=== PATIENT | female | born 1995 | race Caucasian/White ===

== ENCOUNTER 2020-12-09 09:36 | Emergency (ER) | payer BC, SELFPAY ==
[2020-12-09 09:40] VITALS: BP 124/53; PULSE 96; RESP 20; TEMP 36.9; O2SAT 100
--- NOTE | 2020-12-09 09:43 | ED.FEMALEGU ---
HPI - Female Genitourinary General Chief complaint: Urogenital-Female Stated complaint: Poss uti Time Seen by Provider: 12/09/20 09:43 Source: patient and RN notes reviewed History of Present Illness HPI Narrative: Patient is a 25-year-old female who presents the urgent care with complaints of a possible UTI. Patient states that she has had a lot of burning and frequency over the last 3 days and started taking Azo this morning at approximately 6 AM. Patient also reports of some right side pain that started today. Denies of any fever, chills, nausea, vomiting, abdominal pain. Denies any vaginal discharge. No other acute complaints. No acute distress noted. Patient aware of the plan of care. Some parts of this dictation were generated by voice recognition software and may contain typographical and/or grammatical inaccuracies. Related Data Allergies Allergy/AdvReac Type Severity Reaction Status Date / Time amoxicillin Allergy Hives Verified 12/09/20 09:49 Penicillins Allergy Hives Verified 12/09/20 09:49 Review of Systems Review of Systems: Narrative: CONSTITUTIONAL: Denies fever, chills, or sweats. EYES: Denies visual changes, redness, or discharge. ENT: Denies rhinorrhea, congestion, sore throat, or otalgia. CARDIOVASCULAR: Denies chest pain, palpitations, or edema. RESPIRATORY: Denies cough or dyspnea. GASTROINTESTINAL: Denies abdominal pain, nausea, vomiting, or diarrhea. GENITOURINARY: Reports of dysuria and urinary frequency SKIN: Denies rash or itching. MUSCULOSKELETAL: Denies back pain, joint pain, or myalgia. NEUROLOGIC: Denies headache, numbness, or weakness. All other systems reviewed are negative, except as documented in HPI. [facility] Family History Family History (Updated 05/24/19 @ 02:19 by Alise Ross RN) Grandparent Diabetes 1.5, managed as type 2 Social History Social History Smoking status: Never smoker Substance use: never Gender identity (if verbalized by the patient): Female Spiritual care concerns: No Comments At the time of my signature, I reviewed and agree with the nursing past medical, surgical, social, and family history. There is no relevant family history pertinent to the patient complaint. Exam Narrative: Exam Narrative: GENERAL: This is a well-nourished, well-developed patient, in no apparent distress. HEAD: normocephalic, atraumatic. EYES: PERRL. Sclera clear/white. Vision is grossly intact. EARS: External ears normal, auditory canals clear and without drainage, TMs normal without perforation. Hearing grossly intact. NOSE: External nose normal with no obvious nasal discharge, nares without redness, no rhinorrhea. THROAT: Mucous membranes moist NECK: Neck supple CARDIOVASCULAR: Regular rate and rhythm without murmurs, gallops, or rubs. RESPIRATORY: Clear to auscultation. Breath sounds equal bilaterally. No wheezes, rales, or rhonchi. GASTROINTESTINAL: Abdomen soft, mild suprapubic tenderness, nondistended. Bowel sounds are active. SKIN: warm, intact with no suspicious lesions or rash, good texture and turgor. NEURO: awake, alert, and oriented to person, place and time. There were no obvious focal neurologic abnormalities. EXTREMITIES: No clubbing, cyanosis, or edema. BACK: Negative bilateral CVA tenderness Course Vital Signs Vital signs: Vital Signs Temperature 98.5 F 12/09/20 09:40 Pulse Rate 96 12/09/20 09:40 Respiratory Rate 20 12/09/20 09:40 Blood Pressure 124/53 L 12/09/20 09:40 Pulse Oximetry 100 12/09/20 09:40 Temperature 98.5 F 12/09/20 09:40 Pulse Rate 96 12/09/20 09:40 Respiratory Rate 20 12/09/20 09:40 Blood Pressure 124/53 L 12/09/20 09:40 Pulse Oximetry 100 12/09/20 09:40 Reviewed MDM - Female Genitourinary MDM Narrative Medical decision making narrative: Reviewed lab results with the patient. She is aware that urine analysis is likely indicative for urinary tract infection. Considering Azo does skew the resu
== END 2020-12-09 10:05 | disposition home or self-care (01) ==
PROVIDERS: Emergency Provider Nurse Practitioner Family; PCP Family Medicine
DX: N39.0 Urinary tract infection, site not specified (principal)
CPT/HCPCS: 81003; 87077; 87086; 87088; 87186; 99213; G0463

== ENCOUNTER → 2021-02-15 11:43 | Outpatient (CLI) | payer BC, SELFPAY ==
--- NOTE | ~2021-02-15 | US_ITS ---
US breast LT complete INDICATION: Left breast pain TECHNIQUE: Dedicated left breast ultrasound COMPARISON: No prior studies for comparison. FINDINGS: The left breast is composed of normal heterogeneous echotexture without focal solid or cyst ic mass. IMPRESSION: 1: Normal left breast ultrasound. BI-RADS CATEGORY 1 - NEGATIVE Reviewed, dictated and finalized at location A.
== END ==
PROVIDERS: Visit Provider Advanced Practice Midwife
DX: N64.3 Galactorrhea not associated with childbirth (principal)
CPT/HCPCS: 76641

== ENCOUNTER 2021-04-23 12:46 | Emergency (ER) | payer BC, SELFPAY ==
[2021-04-23 12:53] VITALS: BP 141/65; PULSE 93; RESP 16; TEMP 37.2; O2SAT 98
--- NOTE | 2021-04-23 14:01 | ED.FEMALEGU ---
HPI - Female Genitourinary General Chief complaint: Urogenital-Female Stated complaint: UTI Time Seen by Provider: 04/23/21 13:43 Source: patient and RN notes reviewed Mode of arrival: ambulatory Limitations: no limitations History of Present Illness HPI Narrative: Patient presents today complaining of a 2-week history of urinary frequency, urgency, dysuria, and lower abdominal pain. Denies hematuria or back pain. Patient did a telemedicine visit 5 days ago and was placed on Macrobid, which did not help improve her symptoms. She finished the antibiotic yesterday. She has also been taking Azo for her symptoms MD elicited complaint: dysuria Related Data Home Medications Medication Instructions Recorded Confirmed bupropion HCl 100 mg PO BID 04/23/21 04/23/21 omeprazole 20 mg PO DAILY 04/23/21 04/23/21 Allergies Allergy/AdvReac Type Severity Reaction Status Date / Time amoxicillin Allergy Hives Verified 12/09/20 09:49 cephalexin Allergy Unknown Verified 04/23/21 14:02 Penicillins Allergy Hives Verified 12/09/20 09:49 Review of Systems Review of Systems: CONSTITUTIONAL: Denies body aches, fever, chills, or sweats. EYES: Denies visual changes, redness, or discharge. ENT: Denies rhinorrhea, congestion, sore throat, or otalgia. CARDIOVASCULAR: Denies chest pain, palpitations, or edema. RESPIRATORY: Denies cough or dyspnea. GASTROINTESTINAL: Denies nausea, vomiting, or diarrhea.+ Lower abdominal pain GENITOURINARY: Denies hematuria.+ Dysuria, frequency, urgency SKIN: Denies rash, itching, or wounds. MUSCULOSKELETAL: Denies back pain, joint pain, or myalgia. NEUROLOGIC: Denies headache, numbness, tingling, or weakness. PSYCH: Denies depression or anxiety. [facility] Family History Family History Grandparent Diabetes 1.5, managed as type 2 Social History Social History Smoking status: Never smoker Substance use: never Gender identity (if verbalized by the patient): Female Spiritual care concerns: No Comments At time of signature, I have reviewed and agree with nursing past medical, surgical, social and family history unless otherwise noted. Please see nursing chart for further information. There is no relevant family history pertinent to the presenting complaint Exam Narrative: GENERAL: Well-appearing, well-nourished, and in no acute distress. HEAD: Normocephalic, atraumatic. EYES: EOMI. No redness or drainage. Conjunctivae normal. ENT: Mucous membranes pink and moist. NECK: Normal AROM. CHEST: No respiratory distress. Clear to auscultation. HEART: Regular rate and rhythm. No murmur appreciated. Normal peripheral pulses. ABDOMEN: Soft, nontender, nondistended, normal active bowel sounds.-CVAT MUSCULOSKELETAL: No bony tenderness. EXTREMITIES: Normal range of motion. No edema. SKIN: Warm, dry, no rash. Capillary refill normal. Normal skin turgor. NEURO: No focal deficits. Alert and oriented x3. Gait steady. PSYCH: Normal affect. No signs of depression or anxiety. Course Vital Signs Vital signs: Vital Signs Temperature 99 F 04/23/21 12:53 Pulse Rate 93 04/23/21 12:53 Respiratory Rate 16 04/23/21 12:53 Blood Pressure 141/65 H 04/23/21 12:53 Pulse Oximetry 98 04/23/21 12:53 Temperature 99 F 04/23/21 12:53 Pulse Rate 93 04/23/21 12:53 Respiratory Rate 16 04/23/21 12:53 Blood Pressure 141/65 H 04/23/21 12:53 Pulse Oximetry 98 04/23/21 12:53 Reviewed. Pt has been instructed to follow up with her PCP regarding her elevated blood pressure today. MDM - Female Genitourinary Differential Diagnosis Differential diagnosis: Likely urinary tract infection, vaginitis, cystitis and other (Pyelonephritis, interstitial cystitis) Lab Data Attestation: I reviewed the patient's lab results. Labs: Urine Glucose Negative
== END 2021-04-23 14:07 | disposition home or self-care (01) ==
PROVIDERS: Emergency Provider Nurse Practitioner
DX: N30.01 Acute cystitis with hematuria (principal)
CPT/HCPCS: 81003; 87086; 99213; A4565; G0463

== ENCOUNTER 2021-05-02 19:20 | Emergency (ER) | payer BC, SELFPAY ==
[2021-05-02 19:25] VITALS: BP 141/75; PULSE 88; RESP 20; TEMP 36.8; O2SAT 100
--- NOTE | 2021-05-02 20:02 | ED.GENADULT ---
HPI - General Adult General Chief complaint: Urogenital-Female Stated complaint: UTI Time Seen by Provider: 05/02/21 19:46 Source: patient, RN notes reviewed and old records reviewed Mode of arrival: ambulatory Limitations: no limitations History of Present Illness HPI narrative: Patient presents today complaining of nausea, vomiting, diarrhea for the last 2 days. She was initially seen on 04/18/21 and a telemedicine visit and placed on Macrobid for some urinary symptoms. She was subsequently seen at urgent care on 04/23/2021 and switched to Bactrim because she stated her symptoms were not improving. She was seen in the ER at [facility] on 04/26/2021 for back pain where she received lab work and a CT scan of her abdomen. She was told at that time to continue the antibiotic she was placed on at urgent care. 2 days later on 04/28/2021 she was seen in the ER at [facility] for fever up to 101.6 as well as nausea and vomiting and diarrhea. She received another abdominal CT as well as blood work. She was given fluids to rehydrate and discharged home with a prescription for Pyridium and Zofran. She comes in today complaining of vomiting. States the Zofran gave her migraines and she is unable to take it. Fever has resolved. States she is having diarrhea frequently as well reports her urgency and urinary symptoms have never resolved either. She had a negative COVID-19 test yesterday. Related Data Home Medications Medication Instructions Recorded Confirmed ondansetron HCl 4 mg PO Q6H PRN 05/02/21 05/02/21 phenazopyridine 100 mg PO TID PRN 05/02/21 05/02/21 Allergies Allergy/AdvReac Type Severity Reaction Status Date / Time amoxicillin Allergy Intermediate Hives Verified 05/02/21 19:43 Penicillins Allergy Intermediate Hives Verified 05/02/21 19:43 ondansetron [From Zofran] AdvReac Intermediate Migraine Verified 05/02/21 19:56 Review of Systems Review of Systems: CONSTITUTIONAL: Denies body aches, fever, chills, or sweats. EYES: Denies visual changes, redness, or discharge. ENT: Denies rhinorrhea, congestion, sore throat, or otalgia. CARDIOVASCULAR: Denies chest pain, palpitations, or edema. RESPIRATORY: Denies cough or dyspnea. GASTROINTESTINAL: Denies abdominal pain. + Nausea, vomiting, Diarrhea GENITOURINARY: Denies dysuria or hematuria.+ Urgency SKIN: Denies rash, itching, or wounds. MUSCULOSKELETAL: Denies joint pain, or myalgia.+ Back pain NEUROLOGIC: Denies headache, numbness, tingling, or weakness. PSYCH: Denies depression or anxiety. PMFSH Family History Family History Grandparent Diabetes 1.5, managed as type 2 Social History Social History Smoking status: Never smoker Substance use: never Gender identity (if verbalized by the patient): Female Spiritual care concerns: No Comments At time of signature, I have reviewed and agree with nursing past medical, surgical, social and family history unless otherwise noted. Please see nursing chart for further information. There is no relevant family history pertinent to the presenting complaint Exam Narrative: GENERAL: Well-appearing, well-nourished, and in no acute distress. HEAD: Normocephalic, atraumatic. EYES: EOMI. No redness or drainage. Conjunctivae normal. ENT: Mucous membranes pink and moist. Throat normal. Uvula midline. NECK: Normal AROM. Supple. No lymphadenopathy. CHEST: No respiratory distress. Clear to auscultation. HEART: Regular rate and rhythm. No murmur appreciated. Normal peripheral pulses. ABDOMEN: Soft, nondistended, normal active bowel sounds. +Suprapubic tenderness MUSCULOSKELETAL: No bony tenderness of the spine. Bilateral lower lumbar muscular tenderness. EXTREMITIES: Normal range of motion. No edema. SKIN: Warm, dry, no rash. Capillary refill normal. Normal skin turgor. NEURO: No focal de
== END 2021-05-02 20:13 | disposition home or self-care (01) ==
PROVIDERS: Emergency Provider Nurse Practitioner
DX: B34.9 Viral infection, unspecified (principal); R39.15 Urgency of urination
CPT/HCPCS: 99213; G0463

== ENCOUNTER 2021-09-21 09:30 | Outpatient (CLI) | payer BC, SELFPAY ==
--- NOTE | ~2021-09-21 | XR_ITS ---
EXAMINATION: XR abdomen obstructive series EXAM DATE: 09/21/2021 10:14 INDICATION: R10.9 - Unspecified abdominal pain. TECHNIQUE: Frontal upright projection of the upper abdomen, frontal projection of the lower abdomen f or interpretation. There is no prior study for comparison. FINDINGS: There is expected amount of colonic stool and gas. No small bowel dilation, nonobstructiv e bowel gas pattern. There are no suspicious calcifications identified. There is no organomegaly suspected. The bones are unremarkable. There is no free intraperitoneal air. The lung bases are clear. IMPRESSION: Unremarkable abdomen x-ray exam. Reviewed, dictated and finalized at location A.
[2021-09-21 19:42] LABS: Hemoglobin 13.1 g/dL (12.0-15.0); Mean Corpuscular Hemoglobin 30.9 pg (26-34); Mean Corpuscular Volume 96.7 fl (80-100); Platelet Count Result 270 k/mm3 (150-375); Red Blood Count 4.24 M/mm3 (4.2-5.4); Red Cell Distribution Width 13.5 % (11.5-14.5); White Blood Count 4.5 K/mm3 (4.5-10.0)
[2021-09-21 19:58] LABS: Alanine Aminotransferase 13 U/L (4-35); Alkaline Phosphatase 60 U/L (38-126); Anion Gap 10 mmol/L (8-16); Aspartate Amino Transferase 20 U/L (14-36); Bilirubin,Total 0.2 mg/dL (0.2-1.3); Blood Urea Nitrogen 9 mg/dL (7-17); CRP 2.2 mg/dL (<1.0); Calcium 8.9 mg/dL (8.4-10.2); Carbon Dioxide 21 mmol/L (22-30); Chloride 107 mmol/L (98-107); Cholesterol 189 mg/dL (0-200); Estimated Glomerular Filt Rate > 60; Glucose 98 mg/dL (65-110); HDL Direct 40 mg/dL; Potassium 3.9 mmol/L (3.4-5.0); Sodium 138 mmol/L (137-145); Triglycerides 170 mg/dL (<150)
[2021-09-21 20:07] LABS: LDL Cholesterol Direct 122 mg/dL
[2021-09-21 20:13] LABS: Erythrocyte Sedimentation Rate 16 mm/hr (0-20)
[2021-09-23 22:23] LABS: Gliadin AB, IgG 13.8 U/mL (<15.0); Reticulin IgA Negative (Negative); TTG IGA AB <1.0 U/mL (<15.0)
[2021-09-25 01:22] LABS: Immunoglobulin E 8 kU/L (<=114)
== END 2021-09-21 09:31 | disposition home or self-care (01) ==
PROVIDERS: PCP Family Medicine; Visit Provider Family Medicine
DX: K58.9 Irritable bowel syndrome, unspecified (principal); R10.9 Unspecified abdominal pain; L90.5 Scar conditions and fibrosis of skin; Z00.00 Encounter for general adult medical examination without abnormal findings
CPT/HCPCS: 36415; 74019; 80053; 80061; 82785; 83516; 85027; 85652; 86003; 86140; 86255

== ENCOUNTER 2021-12-24 01:06 | Day surgery (SDC) | payer BC, MEDICAID, SELFPAY ==
[2021-12-16 09:10] VITALS: BMI 34.1
[2021-12-24 08:31] VITALS: BP 110/60; PULSE 92; RESP 18; TEMP 36.8; O2SAT 100
[2021-12-24] MEDS: LACTATED RINGERS 1,000 ML 150 ML IV CONT (08:37)
--- NOTE | 2021-12-24 08:51 | WPDHPUPDATE1 ---
History and Physical Update Update Date/Time: 12/24/21 08:51 History and Physical has been reviewed, including an updated exam of the patient. There are NO changes in the patient's condition. Risks, benefits, and alternatives have been discussed and questions answered. Patient agrees to proceed with procedure.
--- NOTE | 2021-12-24 09:01 | WPDANESEPPF ---
Anes - Initial Pre Proc Eval Procedure: Operation Date: 12/24/21 09:30 Proposed Procedures p Esophagogastroduodenoscopy & Colonoscopy - Tristin Duran MD Date/Time: 12/24/21 09:01 Surgeon: Tristin Duran MD Pre Op Diagnosis: nausea, change in bowel habits Patient Data Age: 26 Gender: F Height: 1.68 m Weight: 95.6 kg Last Vital Signs Temp 36.8 C 12/24/21 08:31 Pulse 92 12/24/21 08:31 Resp 18 12/24/21 08:31 BP 110/60 12/24/21 08:31 Pulse Ox 100 12/24/21 08:31 O2 Del Method Room Air 12/24/21 08:31 Allergies Allergy/AdvReac Type Severity Reaction Status Date / Time Penicillins Allergy Intermediate Hives Verified 12/24/21 08:29 ondansetron [From Zofran] AdvReac Intermediate Migraine Verified 12/24/21 08:29 amoxicillin AdvReac Unknown Rash Verified 12/24/21 08:29 Home Medications Medication Instructions Recorded Confirmed Type bupropion HCl 150 mg 24 hr tablet, 150 mg PO QAM #90 tabs 12/07/21 12/16/21 Rx extended release (Wellbutrin XL) Patient hx anesthesia problems: none Family hx anesthesia problems: none Results Review: All pre-operative results and documents have been reviewed as part of the pre-operative evaluation. [facility] Past Medical History Medical History Anxiety Depression Family History Family History Father Hypertension Depression Grandparent Hypertension Grandparent Diabetes 1.5, managed as type 2 Social History Social History Smoking status: Never smoker Alcohol intake: never Substance use: never Substance use type: does not use Living arrangements: with family Gender identity (if verbalized by the patient): Female Sexual Orientation (if Verbalized by the Patient): Straight or Heterosexual Spiritual care concerns: No Agree to blood products: Yes Anes - Eval Final PreProcedure Day of Procedure 12/24/21 09:01 Patient weight: obese Heart: regular rate and rhythm Lungs: clear to auscultation Airway: Mallampati scale class II Neurological: alert and oriented Last oral intake: >/= 8 hours ASA classification: II Emergent: no Anesthetic plan: proceed Anesthesia type and monitoring: general GIVS and standard monitoring Results Review: All pre-operative results and documents have been reviewed as part of the pre-operative evaluation. Informed Consent: The patient's anesthetic plan and its attendant risks and benefits were discussed with the patient/family/POA. Questions were solicited and answers provided to the satisfaction of the patient/family/POA.
[2021-12-24] MEDS: SIMETHICONE ORAL SUSPENSION 20 MG/0.3 ML 30 ML BOTTLE 0.6 ML IRRIGATION (09:55)
[2021-12-24 10:02] VITALS: BP 133/113; PULSE 62; RESP 22; O2SAT 100
[2021-12-24 10:12] VITALS: BP 86/64; PULSE 67; RESP 22; O2SAT 100
[2021-12-24 10:22] VITALS: BP 102/60; PULSE 55; RESP 19; O2SAT 100
== END 2021-12-24 10:28 | disposition home or self-care (01) ==
PROVIDERS: PCP Family Medicine; Visit Provider Internal Medicine Gastroenterology
PROC: 0DJ08ZZ Inspection of Upper Intestinal Tract, Via Natural or Artificial Opening Endoscopic (ICD-10-PCS; CPT 43235; principal; 2021-12-24 09:30)
DX: R19.4 Change in bowel habit (principal); R11.0 Nausea; R19.5 Other fecal abnormalities; F41.9 Anxiety disorder, unspecified; F32.A Depression, unspecified; E66.9 Obesity, unspecified; Z68.34 Body mass index [BMI] 34.0-34.9, adult; R19.8 Other specified symptoms and signs involving the digestive system and abdomen; R10.9 Unspecified abdominal pain; R19.7 Diarrhea, unspecified; R63.4 Abnormal weight loss; K64.8 Other hemorrhoids
CPT/HCPCS: 43239; 45378; 87081; J2704; J7120

== ENCOUNTER 2022-09-30 15:19 | Emergency (ER) | payer BC, SELFPAY ==
[2022-09-30 15:24] VITALS: BP 114/64; PULSE 79; RESP 18; TEMP 37; O2SAT 100
--- NOTE | 2022-09-30 15:45 | ED.FEMALEGU ---
HPI - Female Genitourinary General Chief complaint: Urogenital-Female Stated complaint: Poss uti Time Seen by Provider: 09/30/22 15:45 Source: patient and RN notes reviewed Mode of arrival: ambulatory Limitations: no limitations History of Present Illness HPI Narrative: 27-year-old female presents with concern for urinary tract infection. She reports history of UTIs. She reports symptoms have been going on about a week they improved slightly earlier in the week and then return. She reports frequency, urgency, abdominal discomfort, it chills, nausea. She denies back pain, fever, sweats MD elicited complaint: UTI Related Data Allergies Allergy/AdvReac Type Severity Reaction Status Date / Time Penicillins Allergy Intermediate Hives Verified 09/30/22 15:31 ondansetron [From Zofran] AdvReac Intermediate Migraine Verified 09/30/22 15:31 amoxicillin AdvReac Unknown Rash Verified 09/30/22 15:31 Review of Systems Review of Systems: CONSTITUTIONAL: Denies malaise, sweats, or fever. Reports chills CARDIOVASCULAR: Denies chest pain, palpitations, or edema. RESPIRATORY: Denies cough or dyspnea. GASTROINTESTINAL: Denies abdominal pain,vomiting, diarrhea. Reports nausea GENITOURINARY: Reports dysuria, frequency, urgency, abdominal discomfort. Denies flank pain or hematuria. SKIN: Denies rash or itching. MUSCULOSKELETAL: Denies back pain or myalgia. All systems reviewed & are unremarkable except as noted in HPI and below PMFSH Past Medical History Medical History (Updated 09/30/22 @ 15:50 by Elmira Santoro NP) Anxiety Depression Family History Family History Father Hypertension Depression Grandparent Hypertension Grandparent Diabetes 1.5, managed as type 2 Social History Social History (Updated 07/04/22 @ 11:35 by Francy Torres MA) Smoking status: Never smoker Alcohol intake: never Substance use: never Substance use type: does not use Lack of Transportation: No Lack of Food: Never True Current Housing: I Have Housing Concerned About Future Housing: No Difficulty Paying Gas/Electric Bills: No Difficulty Paying for Meds: No Currently Unemployed: No Education: High School Diploma/GED Difficulty w/ Childcare or Family Care: No Living arrangements: with family Gender identity (if verbalized by the patient): Female Sexual Orientation (if Verbalized by the Patient): Straight or Heterosexual Spiritual care concerns: No Agree to blood products: Yes Comments At time of signature, agree with nursing past medical, surgical, social and family history. There is no relevant family history pertinent to the presenting complaint Exam Narrative: GENERAL: Well-appearing, well-nourished, and in no acute distress. HEAD: Normocephalic. EYES: PERRLA, conjunctivae clear. NECK: Supple. No lymphadenopathy CHEST: Clear to auscultation. No respiratory distress. HEART: Regular rate and rhythm. ABDOMEN: Soft, nontender upon palpation, nondistended, normal active bowel sounds, no palpable or pulsatile masses, no guarding. No CVA tenderness SKIN: Warm, dry, no rash. NEURO: Alert and oriented x3. PSYCH: Normal mood and affect Course Course Emergency Course: Patient is aware of diagnosis, understands and agrees to treatment plan. Anticipatory guidance given. Patient agrees to follow-up as directed and is aware of reasons to seek care at the emergency department. Portions of this record may have been created with voice recognition software Level of Care: Express Care Visit Vital Signs Vital signs: Vital Signs Temperature 98.6 F 09/30/22 15:24 Pulse Rate 79 09/30/22 15:24 Respiratory Rate 18 09/30/22 15:24 Blood Pressure 114/64 09/30/22 15:24 Pulse Oximetry 100 09/30/22 15:24 Oxygen Delivery Room Air 09/30/22 15:24 Temperature 98.6 F 09/30/22 15:24 Pulse Rate 79 09/30/22 15:24 Respiratory
== END 2022-09-30 15:58 | disposition home or self-care (01) ==
PROVIDERS: Emergency Provider Nurse Practitioner; PCP Family Medicine
DX: R35.0 Frequency of micturition (principal); R39.15 Urgency of urination; R10.9 Unspecified abdominal pain; F41.9 Anxiety disorder, unspecified; F32.A Depression, unspecified
CPT/HCPCS: 81003; 87086; 99213; G0463

== ENCOUNTER 2023-02-15 08:38 | Outpatient (CLI) | payer BC, SELFPAY ==
[2023-02-15 19:21] LABS: Hemoglobin 12.2 g/dL (12.0-15.0); Mean Corpuscular HGB Conc 31.3 g/dl (32-36); Mean Corpuscular Hemoglobin 30.8 pg (26-34); Mean Corpuscular Volume 98.5 fl (80-100); Mean Platelet Volume 9.9 fl (7.4-10.4); Platelet Count Result 328 k/mm3 (150-375); Red Blood Count 3.96 M/mm3 (4.2-5.4); Red Cell Distribution Width 13.2 % (11.5-14.5)
[2023-02-15 19:38] LABS: Free T4 Free Thyroxine 1.14 ng/mL (0.78-2.19)
[2023-02-15 20:30] LABS: Alanine Aminotransferase 18 U/L (6-35); Albumin Level 4.3 g/dL (3.5-5.1); Alkaline Phosphatase 45 U/L (38-126); Anion Gap 12 mmol/L (8-16); Aspartate Amino Transferase 49 U/L (14-36); Bilirubin,Total 0.6 mg/dL (0.2-1.3); Blood Urea Nitrogen 9 mg/dL (7-17); Calcium 9.1 mg/dL (8.4-10.2); Carbon Dioxide 21 mmol/L (22-30); Chloride 105 mmol/L (98-107); Estimated Glomerular Filt Rate > 60; Glucose 99 mg/dL (65-110); Potassium 4.1 mmol/L (3.4-5.0); Sodium 138 mmol/L (137-145)
[2023-02-15 20:54] LABS: Hemoglobin A1C 5.1 % (<5.7)
[2023-02-17 11:59] LABS: Insulin Level Total 23.9 uIU/mL (<=19.6)
[2023-02-18 04:30] LABS: Thyroid Peroxidase Antibodies <1 IU/mL (<9)
[2023-02-19 14:42] LABS: Testosterone Free 2.3 pg/mL (0.1-6.4); Testosterone Total 24 ng/dL (2-45)
[2023-02-21 21:12] LABS: Free Insulin 26.3 uIU/mL (1.5-14.9)
== END 2023-02-15 08:39 | disposition home or self-care (01) ==
LOC: ANHBWCLAB 08:40
PROVIDERS: PCP Nurse Practitioner Adult Health; Visit Provider Nurse Practitioner Adult Health
DX: Z13.9 Encounter for screening, unspecified (principal); L68.9 Hypertrichosis, unspecified; E66.9 Obesity, unspecified
CPT/HCPCS: 36415; 80053; 83036; 83525; 83527; 84402; 84403; 84439; 84443; 85027; 86376

== ENCOUNTER 2023-03-09 09:51 | Outpatient (CLI) | payer BC, SELFPAY ==
[2023-03-09 18:33] LABS: Appearance Urine Clear (Clear); Bilirubin Urine Negative (Negative); Blood Urine Negative (Negative); Color Urine Yellow (Yellow); Glucose Urine UA Negative (Negative); Ketones Urine Negative (Negative); Leukocyte Esterase Ur Negative LEU/UL (Negative); Nitrate Urine Negative (Negative); Protein Urine Negative (Negative); Specific Grav Ur 1.004 (1.001-1.035); Urobilinogen Urine 0.2 mg/dL (<2.0)
[2023-03-09 19:01] LABS: Add Urine Microscopic? NO
== END 2023-03-09 09:52 | disposition home or self-care (01) ==
LOC: ANHBWCLAB 09:52
PROVIDERS: PCP Nurse Practitioner Adult Health; Visit Provider Family Medicine
DX: R39.9 Unspecified symptoms and signs involving the genitourinary system (principal)
CPT/HCPCS: 81003

== ENCOUNTER 2023-10-24 08:38 | Outpatient (CLI) | payer BC, SELFPAY ==
[2023-10-24 18:42] LABS: Hematocrit 39.5 % (37.0-47.0); Hemoglobin 12.1 g/dL (12.0-15.0); Mean Corpuscular HGB Conc 30.6 g/dl (32-36); Mean Corpuscular Hemoglobin 30.7 pg (26-34); Mean Corpuscular Volume 100.3 fl (80-100); Mean Platelet Volume 9.7 fl (7.4-10.4); Platelet Count Result 323 k/mm3 (150-375); Red Blood Count 3.94 M/mm3 (4.2-5.4); Red Cell Distribution Width 13.7 % (11.5-14.5); White Blood Count 7.1 K/mm3 (4.5-10.0)
[2023-10-24 19:10] LABS: Alanine Aminotransferase 13 U/L (6-35); Albumin Level 4.5 g/dL (3.5-5.1); Alkaline Phosphatase 46 U/L (38-126); Anion Gap 8 mmol/L (4-12); Aspartate Amino Transferase 65 U/L (14-36); Bilirubin,Total 0.6 mg/dL (0.2-1.3); Blood Urea Nitrogen 12 mg/dL (7-17); Calcium 9.2 mg/dL (8.4-10.2); Carbon Dioxide 24 mmol/L (22-30); Chloride 105 mmol/L (98-107); Estimated Glomerular Filt Rate > 60; Glucose 77 mg/dL (65-110); Potassium 4.4 mmol/L (3.4-5.0); Sodium 137 mmol/L (137-145)
[2023-10-24 20:02] LABS: Appearance Urine Clear (Clear); Bacteria Urine Rare /hpf; Bilirubin Urine Negative (Negative); Blood Urine Negative (Negative); Color Urine Yellow (Yellow); Glucose Urine UA Negative (Negative); Ketones Urine Negative (Negative); Leukocyte Esterase Ur 3+ LEU/UL (Negative); Nitrate Urine Negative (Negative); Protein Urine Negative (Negative); RBC Urine 0-2 /hpf (0-2); Specific Grav Ur 1.012 (1.001-1.035); Squamous Epithelial Cell Urine Moderate /hpf (Few); Urobilinogen Urine 0.2 mg/dL (<2.0); WBC Urine 0-5 /hpf (0-3); pH Urine 8.5 (5.0-9.0)
[2023-10-24 20:08] LABS: Add Urine Microscopic? YES
== END 2023-10-24 08:39 | disposition home or self-care (01) ==
LOC: ANHBWCLAB 08:39
PROVIDERS: PCP Nurse Practitioner Adult Health; Visit Provider Nurse Practitioner Adult Health
DX: R63.1 Polydipsia (principal)
CPT/HCPCS: 36415; 80053; 81001; 83036; 84443; 85027

== ENCOUNTER 2024-06-20 11:10 | Emergency (ER) | payer BC, SELFPAY ==
[2024-06-20 11:16] VITALS: BP 124/54; PULSE 81; RESP 16; TEMP 36.7; O2SAT 100
--- NOTE | 2024-06-20 11:53 | ED.FEMALEGU ---
HPI - Female Genitourinary General Chief complaint: Urogenital-Female Stated complaint: Poss UTI Time Seen by Provider: 06/20/24 11:30 Source: patient, RN notes reviewed and old records reviewed Mode of arrival: ambulatory Limitations: no limitations History of Present Illness HPI Narrative: 29 year old female who presents to [facility] with complaints of 3 day history of urinary frequency,urgency and burning with initially fever of 101F on first day with no further fevers. Patient reports that she has taken Cystex and Ibuprofen for her symptoms. Patient reports that she has some right flank discomfort today. Patient reports no nausea or vomiting, no concern for STD exposure, with no vaginal discharge or itching. Patient reports that she usually gets 1-2 UTI's yearly. MD elicited complaint: dysuria and other Pertinent past history: other (previous UTI's) Onset (ago): day(s) (3) Location of symptoms: urethra and flank (right) Severity: moderate Female Urogenital Radiation: R Flank Vaginal discharge: none Vaginal bleeding: none Treatment prior to arrival: other (Cystex) Related Data Allergies Allergy/AdvReac Type Severity Reaction Status Date / Time Penicillins Allergy Intermediate Hives Verified 02/19/24 13:03 ondansetron (From Zofran) AdvReac Intermediate Migraine Verified 02/19/24 13:03 amoxicillin AdvReac Unknown Rash Verified 02/19/24 13:03 Review of Systems Review of Systems: CONSTITUTIONAL: Denies present fever, chills, or sweats. CARDIOVASCULAR: Denies chest pain, palpitations, or edema. RESPIRATORY: Denies cough or dyspnea. GASTROINTESTINAL: Denies abdominal pain, nausea, vomiting, or diarrhea. GENITOURINARY: Reports dysuria, frequency, urgency. Reports right flank pain denies visible hematuria. SKIN: Denies rash or itching. MUSCULOSKELETAL: Denies back pain or myalgia. Reports right CVA tenderness NEUROLOGIC: Denies headache All systems reviewed & are unremarkable except as noted in HPI and below PMFSH Past Medical History Medical History (Updated 06/22/24 @ 09:05 by Nury Eckert NP) GERD (gastroesophageal reflux disease) Insulin resistance Depression Anxiety Family History Family History Father Hypertension Depression Grandparent Hypertension Grandparent Diabetes 1.5, managed as type 2 Social History Social History (Updated 07/04/22 @ 11:35 by Francy Torres MA) Smoking status: Never smoker Alcohol intake: never Substance use: never Substance use type: does not use Lack of Transportation: No Lack of Food: Never True Current Housing: I Have Housing Concerned About Future Housing: No Difficulty Paying Gas/Electric Bills: No Difficulty Paying for Meds: No Currently Unemployed: No Education: High School Diploma/GED Difficulty w/ Childcare or Family Care: No Living arrangements: with family Gender identity (if verbalized by the patient): Female Sexual Orientation (if Verbalized by the Patient): Straight or Heterosexual Spiritual care concerns: No Agree to blood products: Yes Comments At time of signature, agree with nursing past medical, surgical, social and family history. There is no relevant family history pertinent to the presenting complaint Exam Narrative: GENERAL: Well-appearing, well-nourished, and in no acute distress. HEAD: Normocephalic, atraumatic. NECK: Supple.no lymphadenopathy CHEST: Clear to auscultation. No respiratory distress. SAO2 100% on room air HEART: Regular rate and rhythm. No murmur heard. Normal peripheral pulses. ABDOMEN: Soft, nontender, nondistended, normal active bowel sounds. Right CVA tenderness,positive urgency, frequency, and burning with urination. EXTREMITIES: Normal range of motion. No edema. SKIN: Warm, dry, no rash. NEURO: No focal deficits. Alert and oriented x3. Course Course Emergency Course: Patient is aware of diagnosis, understands and agrees to treatment plan.? Anticipatory guidance given.? Patient agrees to follow-up as directed and is aware of reasons to seek care at the emergency department. Portions of this record may have been created with voice recognition software Level of Care: Express Care Visit Vital Signs Vital signs: Vital Signs Temperature 36.7 C 06/20/24 11:16 Pulse Rate 81 06/20/24 11:16 Respiratory Rate 16 06/20/24 11:16 Blood Pressure 124/54 L 06/20/24 11:16 Pulse Oximetry 100 06/20/24 11:16 Oxygen Delivery Room Air 06/20/24 11:16 Temperature 36.7 C 06/20/24 11:16 Pulse Rate 81 06/20/24 11:16 Respiratory Rate 16 06/20/24 11:16 Blood Pressure 124/54 L 06/20/24 11:16 Pulse Oximetry 100 06/20/24 11:16 Oxygen Delivery Room Air 06/20/24 11:16 reviewed MDM - Female Genitourinary MDM Narrative Medical decision making narrative: Exam findings and UA show no acute concerns or changes; patient is non-toxic appearing and is in no distress.? Patient is appropriate for outpatient treatment and follow-up. Differential Diagnosis Differential diagnosis: Likely urinary tract infection, cystitis and other (dysuria) Medical Records Attestation: I reviewed the patient's medical records. Lab Data Attestation: I reviewed the patient's lab results. Lab results narrative: Urine dip glucose negative bilirubin negative ketone negative specific gravity 1.015, blood 2+, pH 7.0, protein 1+, urobilinogen 0.2 nitrate negative, leukocyte 2+ Labs: Lab Results 06/20/24 Range/Units 11:25 POC Urine Color Light/pale POC Urine Clarity Cloudy POC Urine pH 7.0 POC Ur Specif [place] 1.015 POC Urine Protein 1+ (Negative) POC Ur Glucose (UA) Negative (Negative) POC Urine Ketones Negative (Negative) POC Urine Blood 2+ (Negative) POC Urine Nitrite Negative (Negative) POC Urine Bilirubin Negative (Negative) POC Urine Urobilinogen 0.2 POC U Leukocyte Esteras 2+ (Negative) Critical Care Time Critical Care Time Critical Care Time: No Discharge Plan Discharge Clinical Impression: Urinary tract infection Qualifiers: Urinary tract infection type: site unspecified Hematuria presence: with hematuria Qualified Code(s): N39.0 - Urinary tract infection, site not specified Patient Disposition: Home, Self-Care Condition: Stable Instructions: Antibiotic Form, Urinary Tract Infection in Women (ED) Additional Instructions: Increase fluids especially cranberry juice and water Avoid caffeine and carbonated beverages Antibiotic as directed complete all doses Medicine as directed--cautioned it will cause your urine to be bright orange Tylenol/ibuprofen for pain or fever Follow-up with her primary care provider if further problems or concerns Recheck if you have fever over 101, nausea and vomiting. Monitor for any fevers If your symptoms persist, change or worsen significantly before you can contact your personal physician then please, without delay, go to the emergency department for further evaluation. Follow-up with PCP in 7-10 days or sooner if needed Patient Language: Slovenian Prescriptions: New sulfamethoxazole-trimethoprim [Bactrim DS] 800-160 mg tablet 1 tablet PO Q12H Qty: 14 0RF No Action hydroxyzine HCl 50 mg tablet 50 mg PO TID PRN (Reason: anxiety and sleep) Qty: 90 0RF omeprazole 20 mg capsule,delayed release(DR/EC) 20 mg PO DAILY Qty: 90 1RF fluoxetine 20 mg capsule 20 mg PO DAILY Qty: 90 3RF metformin 500 mg tablet extended release 24 hr See Rx Instructions .ROUTE .COMPLEX Qty: 180 3RF Dose Instruction: TAKE 1 TABLET BY MOUTH TWICE DAILY Rx Instructions: TAKE 1 TABLET BY MOUTH TWICE DAILY Follow-up/Referrals: Viky Ferreira APRN [Primary Care Provider] - Time of Disposition: 11:57 Quality [place] Coma Scale Eyes: Open Verbal: Oriented and Alert Motor: Follows Commands Anirudh Coma Total Score: 15
[2024-06-20 12:01] LABS: EDUAAPPEAR Cloudy; EDUABILI Negative (Negative); EDUABLOOD 2+ (Negative); EDUACOLOR1 Light/Pale; EDUAGLUCOSE Negative (Negative); EDUAKETONE Negative (Negative); EDUALEUKO 2+ (Negative); EDUANITRATE Negative (Negative); EDUAPROTEIN 1+ (Negative); EDUASPGRAVITY 1.015; EDUAUROBILI 0.2
== END 2024-06-20 12:02 | disposition home or self-care (01) ==
PROVIDERS: Emergency Provider Registered Nurse; PCP Nurse Practitioner Adult Health
DX: N39.0 Urinary tract infection, site not specified (principal); B96.20 Unspecified Escherichia coli [E. coli] as the cause of diseases classified elsewhere; K21.9 Gastro-esophageal reflux disease without esophagitis; E88.819 Insulin resistance, unspecified
CPT/HCPCS: 81003; 87086; 87186; 99213; G0463

== ENCOUNTER 2024-08-20 08:50 | Outpatient (CLI) | payer BC, SELFPAY ==
--- OUTSIDE RECORDS SUMMARY | 2024-08-20 09:13 | XMS_ITS | Clinical Summary ---
Author Organization [facility] Address [address] [place] [address] Phone Care Team Providers Care Kennel Assistant Name Role Phone ANNE LLOYD MD Primary Care Provider [phone] Reason for Visit and Chief Complaint * PHONE CALL Plan of Treatment No Plan of Treatment Recorded Assessments Includes: Assessments from this encounter No Assessments Recorded Medical Equipment - Implanted Devices Includes: Current Devices No Medical Equipment Recorded Medications Includes: Medications discussed during this encounter and other current Medications Past Medications on file WILTON 3-0.02MG Oral Tablet 08/02/2016 - 07/04/2017 Provi ralph: ANNE LLOYD MD Diagnosis: One tablet daily Last Documented On 08/02/2016 1:15PM By ANNE LLOYD MD ; [facility] Zofran 4 MG Tablet 10/31/2014 - 11/15/2014 Provider: ANNE LLOYD MD Diagnosis: 1 every 6 hours as needed Last Documented On 10/31/2014 3:49PM By ANNE LLOYD MD ; [facility] Amoxicillin 500 MG Capsule, conventional 09/24/2014 - 10/01/2014 Provider: JOSÉ MIGUEL GRIFFIN Diagnosis: ASY BACTERIURIA-ANTEPART One tablet three times a day Last Documented On 5 10:49AM By JOSÉ MIGUEL GRIFFIN ; [facility] Medications Administered Includes: Administered Medications from this encounter No Administered Medications Recorded Results Includes: Results discussed during this encounter No Results Recorded For Specified Dates History of Present Illness Includes: History of Present Illness from this encounter No History of Present Illness Recorded Social History No Social History Recorded - Smoking Status Unknown Medical History Includes: Medical History addressed during this encounter No Medical History Recorded Family History Includes: Family History addressed during this encounter No Family History Recorded Review of Systems Includes: Review of Systems from this encounter No Review of Systems Recorded Mental Status Includes: Mental Status from this encounter No Mental Status Recorded Functional Status Includes: Functional Status from this encounter No Functional Status Recorded Physical Exam Includes: Physical Exam from this encounter No Physical Exam Recorded Allergies Includes: Active Allergies Substance Type Reaction Onset Date Resolved Date Statu s Amoxicillin Allergy Skin Rashes / Eruption of skin, Hives / Urticaria 09/26/2014 Active Last Documented On 08/08/2017 2:53PM ; [facility] Note: edema of feet/hands; throat felt c onstricted Encounters Encounter Provider Location Date Check-In Time Check-Out Time Diagnosis * PHONE CALL ANNE LLOYD MD 09/02/2016 11:59AM 11:59PM Insurance Includes: Active Insurance Policies Plan Name Member ID Group # Subscriber Relationship Effect bi Dates - [facility] [id number] CONNOR burgos Clinical Notes Includes: Clinical Notes from this encounter No Clinical Notes Recorded
--- OUTSIDE RECORDS SUMMARY | 2024-08-20 09:14 | XMS_ITS | Clinical Summary ---
Author Organization [facility] Address [address] [place] [address] Phone Care Team Providers Care Embossing Press Operator Name Role Phone ANNE LLOYD MD Primary Care Provider [phone] Reason for Visit and Chief Complaint The Chief Complaint is: Annual exams. Patient stopped taking OCP due to giving her migraines Plan of Treatment Contraception: declines, would be happy if she conceives but isn't actively trying. She's aware she may not be ovulating regularly due to irregular cycles and to let me know if she goes more than 3 months without a period or if she's been trying to conceive for a year or more without success. Start daily PNV - Last Documented On 08/08/2017 3:15PM ; [facility] Instructions to patient Instructions for patient : B reast Self Exam discussed Last Documented On 8 3:00PM ; [facility] Education and Decision Aids were provided during visit for: STD screening offered and de clined Last Documented On 8 3:00PM ; [facility] Assessments Includes: Assessments from this encounter Findings - Routine pelvic exam - Last Documented On 08/08/2017 3:15PM ; [facility] Instructions Includes: Instructions from this encounter Instructions to patient Instructions for patient : B reast Self Exam discussed Last Documented On 8 3:00PM ; [facility] Education and Decision Aids were provided during visit for: STD screening offered and de clined Last Documented On 8 3:00PM ; [facility] Medical Equipment - Implanted Devices Includes: Current Devices No Medical Equipment Recorded Medications Includes: Medications discussed during this encounter and other current Medications Past Medications on file WILTON 3-0.02MG Oral Tablet 08/02/2016 - 07/04/2017 Provi ralph: ANNE LLOYD MD Diagnosis: One tablet daily Last Documented On 08/02/2016 1:15PM By ANNE LLOYD MD ; [facility] Zofran 4 MG Tablet 10/31/2014 - 11/15/2014 Provider: ANNE LLOYD MD Diagnosis: 1 every 6 hours as needed Last Documented On 10/31/2014 3:49PM By ANNE LLOYD MD ; [facility] Amoxicillin 500 MG Capsule, conventional 09/24/2014 - 10/01/2014 Provider: JOSÉ MIGUEL GRIFFIN Diagnosis: ASY BACTERIURIA-ANTEPART One tablet three times a day Last Documented On 5 10:49AM By JOSÉ MIGUEL GRIFFIN ; [facility] Medications Administered Includes: Administered Medications from this encounter No Administered Medications Recorded Vital Signs Includes: Vital Signs from this encounter Vital Name 08/08/2017 02:52P Blood Pressure Sitting (mmHg) 124/70 Pulse Rate-Sitting (bpm) 102 Height (in) 66 Weight (lb) 246.4 Body Mass Index (kg/m2) 39.8 Body Surface Area (m2) 2.2 Last Documented: On 08/08/2017 2:56PM ; [facility] Results Includes: Results discussed during this encounter No Results Recorded For Specified Dates History of Present Illness Includes: History of Present Illness from this encounter OLLIE BUTTS is a 22 year old female. - Unusual bleeding periods have been Q5-7 weeks since stopping OCP about 6 months ago but migraines did resolve! - No pelvic pain. - No vaginal discharge. Social History Description Last Updated In monogamous relationship 08/08/2017 Last Documented On 8 3:15PM ; [facility] Alcohol use: 2 drinks or less per day oc c 08/08/2017 Last Documented On 8 3:15PM ; [facility] Sexually active 08/08/2017 Last Documented On 8 3:15PM ; [facility] Non-smoker 08/08/2017 Last Documented On 8 3:15PM ; [facility] Smoking Status Unknown Procedures and Surgical History Includes: Procedures from this encounter Procedures Code Diagnosis Performing Provider Service L ocation Service Date Clinical summary provided to patient Last Documented On 8 3:00PM ; [facility] cervical Pap smear 64366 Last Documented On 8 3:00PM ; [facility] Medical History Includes: Medical History addressed during this encounter Description Last Updated Contraception: none, patient is trying t o get 08/08/2017 Last Documented On 8 3:15PM ; [facility] LMP: 07/31/2017 08/08/2017 Last Documented On 8 3:15PM ; [facility] Result: normal 08/08/2017 Last Documented On 8 3:15PM ; [facility] 1 08/08/2017 Last Documented On 8 3:15PM ; [facility] Last pap smear date 08/02/2015 08/08/2017 Last Documented On 8 3:15PM ; [facility] Para 1 08/08/2017 Last Documented On 8 3:15PM ; [facility] Family History Includes: Family History addressed during this encounter No Family History Recorded Review of Systems Includes: Review of Systems from this encounter Systemic: No recent weight change. Head: No headache. Eyes: No vision problems. Otolaryngeal: No hoarseness. Cardiovascular: No chest pain or discomfort and no palpitations. Pulmonary: No shortness of breath. Gastrointestinal: Normal appetite. No nausea, no vomiting, and no hematochezia. No diarrhea and no constipation. Genitourinary: No nocturia. No urinary loss of control and no dysuria. Musculoskeletal: No arthralgias and no localized joint swelling. Neurological: No tingling and no numbness. Psychological: No anxiety, no depression, and no sleep disturbances. Mental Status Includes: Mental Status from this encounter Description No anxiety Functional Status Includes: Functional Status from this encounter No Functional Status Recorded Physical Exam Includes: Physical Exam from this encounter Allergies Includes: Active Allergies Substance Type Reaction Onset Date Resolved Date Statu s Amoxicillin Allergy Skin Rashes / Eruption of skin, Hives / Urticaria 09/26/2014 Active Last Documented On 08/08/2017 2:53PM ; [facility] Note: edema of feet/hands; throat felt c onstricted Encounters Encounter Provider Location Date Check-In Time Check-Out Time Diagnosis 2ND PRESSMAN EXAM ANNE LLOYD MD [facility] HELP DESK ENGINEER 8 2:48PM 3:16PM Routine Pelvic Exam Insurance Includes: Active Insurance Policies Plan Name Member ID Group # Subscriber Relationship Effect bi Dates - [facility] [id number] CONNOR burgos Clinical Notes Includes: Clinical Notes from this encounter No Clinical Notes Recorded
--- OUTSIDE RECORDS SUMMARY | 2024-08-20 09:14 | XMS_ITS | Clinical Summary ---
Author Organization [facility] Address [address] [place] [address] Phone Care Team Providers Care Manufacturing Coordinator Name Role Phone ANNE LLOYD MD Primary Care Provider [phone] Reason for Visit and Chief Complaint The Chief Complaint is: Annual exam Plan of Treatment Contraception: continue OCP - Last Documented On 08/02/2016 1:17PM ; [facility] Instructions to patient Instructions for patient : B reast Self Exam discussed Last Documented On 7 1:04PM ; [facility] Education and Decision Aids were provided during visit for: Patient counseling : Use of oral contraceptives discussed in detail including rare occurrence of heart attack, stroke, and leg clots. Patient understands that smoking increases the risk of serious side effects with any steroid-based contraceptive method Last Documented On 7 1:14PM ; [facility] STD screening offered and de clined Last Documented On 7 1:04PM ; [facility] Assessments Includes: Assessments from this encounter Findings - Routine pelvic exam - Last Documented On 08/02/2016 1:17PM ; [facility] Instructions Includes: Instructions from this encounter Instructions to patient Instructions for patient : B reast Self Exam discussed Last Documented On 7 1:04PM ; [facility] Education and Decision Aids were provided during visit for: Patient counseling : Use of oral contraceptives discussed in detail including rare occurrence of heart attack, stroke, and leg clots. Patient understands that smoking increases the risk of serious side effects with any steroid-based contraceptive method Last Documented On 7 1:14PM ; [facility] STD screening offered and de clined Last Documented On 7 1:04PM ; [facility] Medical Equipment - Implanted Devices Includes: Current Devices No Medical Equipment Recorded Medications Includes: Medications discussed during this encounter and other current Medications New / Renewed during this visit ANNE LLOYD MD on 08/02/2016 WILTON 3-0.02MG Oral Tablet Provider: NETTA LLOYD MD 84 day supply: 84 tablet, 3 refills Diagnosis: One tablet daily [facility] [address], [phone] - Last Documented On 08/02/2016 1:15PM By ANNE LLOYD MD ; [facility] Past Medications on file Zofran 4 MG Tablet 10/31/2014 - 11/15/2014 Provider: ANNE LLOYD MD Diagnosis: 1 every 6 hours as needed Last Documented On 10/31/2014 3:49PM By ANNE LLOYD MD ; [facility] Amoxicillin 500 MG Capsule, conventional 09/24/2014 - 10/01/2014 Provider: JOSÉ MIGUEL VILLANUEVA LINN Diagnosis: ASY BACTERIURIA-ANTEPART One tablet three times a day Last Documented On 5 10:49AM By JOSÉ MIGUEL VILLANUEVA LANCE- ; [facility] Medications Administered Includes: Administered Medications from this encounter No Administered Medications Recorded Results Includes: Results discussed during this encounter No Results Recorded For Specified Dates History of Present Illness Includes: History of Present Illness from this encounter OLLIE BUTTS is a 21 year old female. - No unusual bleeding. - No pelvic pain. - No vaginal discharge. She is now engaged to Maryam's dad. They are planning to get in 03/2018! Social History Description Last Updated In monogamous relationship 08/02/2016 Last Documented On 7 1:17PM ; [facility] Alcohol use: 2 drinks or less per day oc c 08/02/2016 Last Documented On 7 1:17PM ; [facility] Sexually active 08/02/2016 Last Documented On 7 1:17PM ; [facility] Non-smoker 08/02/2016 Last Documented On 7 1:17PM ; [facility] Smoking Status Unknown Procedures and Surgical History Includes: Procedures from this encounter Procedures Code Diagnosis Performing Provider Service L ocation Service Date Clinical summary provided to patient Last Documented On 7 1:04PM ; [facility] cervical Pap smear 43285 Last Documented On 7 1:04PM ; [facility] Medical History Includes: Medical History addressed during this encounter Description Last Updated LMP: 07/19/2016 08/02/2016 Last Documented On 7 1:17PM ; [facility] Contraception: pill 08/02/2016 Last Documented On 7 1:17PM ; [facility] 1 08/02/2016 Last Documented On 7 1:17PM ; [facility] Last pap smear date 07/27/2015 08/02/2016 Last Documented On 7 1:17PM ; [facility] Para 1 08/02/2016 Last Documented On 7 1:17PM ; [facility] Family History Includes: Family History addressed during [...] Active Last Documented On 08/08/2017 2:53PM ; [facility] Note: edema of feet/hands; throat felt c onstricted Encounters Encounter Provider Location Date Check-In Time Check-Out Time Diagnosis GAS ATTENDANT EXAM ANNE LLOYD MD [facility] VEHICLE COST ENGINEER 12:49PM 1:16PM Routine Pelvic Exam Insurance Includes: Active Insurance Policies Plan Name Member ID Group # Subscriber Relationship Effect bi Dates 1 - [facility] [id number] CONNOR burgos Clinical Notes Includes: Clinical Notes from this encounter No Clinical Notes Recorded
--- OUTSIDE RECORDS SUMMARY | 2024-08-20 09:14 | XMS_ITS | Clinical Summary ---
Author Organization [facility] Address [address] [place] [phone] Phone Care Team Providers Care Ram Car Operator Name Role Phone ANNE LLOYD MD Primary Care Provider [phone] Reason for Visit and Chief Complaint [Patient Encounter] Plan of Treatment No Plan of Treatment Recorded Assessments Includes: Assessments from this encounter No Assessments Recorded Medical Equipment - Implanted Devices Includes: Current Devices No Medical Equipment Recorded Medications Includes: Medications discussed during this encounter and other current Medications No Medications Taken Medications Administered Includes: Administered Medications from this [...] Active Last Documented On 08/08/2017 2:53PM ; [facility] Note: edema of feet/hands; throat felt c onstricted Encounters Encounter Provider Location Date Check-In Time Check-Out Time Diagnosis [Patient Encounter] ANNE LLOYD MD 09/02/2016 1:14PM 11:59PM Insurance Includes: Active Insurance Policies Plan Name Member ID Group # Subscriber Relationship Effect bi Dates - [facility] PLAN [id number] CONNOR burgos Clinical Notes Includes: Clinical Notes from this encounter No Clinical Notes Recorded
--- OUTSIDE RECORDS SUMMARY | 2024-08-20 09:14 | XMS_ITS ---
Author Organization [facility] Address [address] [place] [address] Phone Care Team Providers Care Vice President Of Instruction Name Role Phone ANNE LLOYD MD Primary Care Provider [phone] Plan of Treatment Findings Encounter Date Ordered Clinical summary pro vided to patient RETURN OB EXAM with JOSÉ MIGUEL VILLANUEVA [facility]- 12/26/2014 Last Documented On 5 2:05PM ; [facility] Ordered Clinical summary pro vided to patient RETURN OB EXAM with JOSÉ MIGUEL VILLANUEVA [facility]- 12/12/2014 Last Documented On 5 1:43PM ; [facility] Instructions to patient Instructions for patient : B reast Self Exam discussed Last Documented On 8 3:00PM ; [facility] Instructions for patient : B reast Self Exam discussed Last Documented On 7 1:04PM ; [facility] Instructions for patient : B reast Self Exam discussed Last Documented On 6 2:54PM ; [facility] Education and Decision Aids were provided during visit for: STD screening offered and de clined Last Documented On 8 3:00PM ; [facility] Patient counseling : Use of oral contraceptives discussed in detail including rare occurrence of heart attack, stroke, and leg clots. Patient understands that smoking increases the risk of serious side effects with any steroid-based contraceptive method Last Documented On 7 1:14PM ; [facility] STD screening offered and de clined Last Documented On 7 1:04PM ; [facility] Patient counseling : Use of oral contraceptives discussed in detail including rare occurrence of heart attack, stroke, and leg clots. Patient understands that smoking increases the risk of serious side effects with any steroid-based contraceptive method Last Documented On 6 3:12PM ; [facility] STD screening offered and de clined Last Documented On 6 2:54PM ; [facility] Assessments Includes: Assessments for all patient encounters Findings Encounter Date Routine pelvic exam INTRANET DEVELOPER EXAM with ANNE LLOYD MD 08/08/2017 Last Documented On 8 3:15PM ; [facility] Routine pelvic exam INTRANET DEVELOPER EXAM with ANNE LLOYD MD 08/02/2016 Last Documented On 7 1:17PM ; [facility] Routine pelvic exam INTRANET DEVELOPER EXAM with ANNE LLOYD MD 07/27/2015 Last Documented On 6 3:12PM ; [facility] Contraceptive management RECHECK with ANNE ALVARENGA MD 06/01/2015 Last Documented On 5 11:10AM ; [facility] Contraceptive management: In sertion of IUD POST VISIT with ANNE LLOYD MD 03/20/2015 Last Documented On 5 10:46AM ; [facility] Normal checkup (6 - 42 wk) * PHONE CALL with ANNE LLOYD MD 02/03/2015 Last Documented On 5 8:44AM ; [facility] Normal checkup (6 - 42 wk) RETURN OB EX AM with ANNE LLOYD MD 02/02/2015 Last Documented On 5 1:56PM ; [facility] Normal checkup (6 - 42 wk) RETURN OB EX AM with ANNE LLOYD MD 01/26/2015 Last Documented On 5 1:54PM ; [facility] Normal checkup (6 - 42 wk) RETURN OB EX AM with ANNE LLOYD MD 01/19/2015 Last Documented On 5 2:14PM ; [facility] Vaginal discharge RETURN OB EXAM with ANNE ALVARENGA MD 01/19/2015 Last Documented On 5 2:14PM ; [facility] Normal checkup (6 - 42 wk) * PHONE CALL with ANNE LLOYD MD 01/16/2015 Last Documented On 5 9:43AM ; [facility] Normal checkup (6 - 42 wk) RETURN OB EX AM with ANNE LLOYD MD 01/12/2015 Last Documented On 5 3:45PM ; [facility] Normal checkup (6 - 42 wk) RETURN OB EX AM with ANNE LLOYD MD 01/05/2015 Last Documented On 5 3:02PM ; [facility] Normal checkup (6 - 42 wk) * PH ONE CALL with JOSÉ MIGUEL VILLANUEVA [facility] 12/29/2014 Last Documented On 5 8:59AM ; [facility] Normal checkup (6 - 42 wk) RETU RN OB EXAM with JOSÉ MIGUEL VILLANUEVA [facility]- 12/26/2014 Last Documented On 5 2:05PM ; [facility] Normal checkup (6 - 42 wk) * PH ONE CALL with JOSÉ MIGUEL VILLANUEVA [facility] 12/16/2014 Last Documented On 5 4:06PM ; [facility] Normal checkup (6 - 42 wk) * PH ONE CALL with JOSÉ MIGUEL VILLANUEVA [facility] 12/15/2014 Last Documented On 5 11:51AM ; [facility] Normal checkup (6 - 42 wk) RETU RN OB EXAM with JOSÉ MIGUEL VILLANUEVA [facility]- 12/12/2014 Last Documented On 5 1:43PM ; [facility] Normal checkup (6 - 42 wk) RETU RN OB EXAM with JOSÉ MIGUEL VILLANUEVA [facility] 11/17/2014 Last Documented On 5 10:30AM ; [facility] Normal checkup (6 - 42 wk) * PHONE CALL with ANNE LLOYD MD 10/31/2014 Last Documented On 5 4:41PM ; [facility] Normal checkup (6 - 42 wk) * PHONE CALL with ANNE LLOYD MD 10/31/2014 Last Documented On 5 3:49PM ; [facility] Normal checkup (6 - 42 wk) * PHONE CALL with ANNE LLOYD MD 10/29/2014 Last Documented On 5 9:39AM ; [facility] Normal checkup (6 - 42 wk) * PHONE CALL with ANNE LLOYD MD 10/28/2014 Last Documented On 5 1:33PM ; [facility] Normal checkup (6 - 42 wk) RETURN OB EX AM with ANNE LLOYD MD 10/20/2014 Last Documented On 5 1:38PM ; [facility] Normal checkup (6 - 42 wk) * PHONE CALL with ANNE LLOYD MD 09/26/2014 Last Documented On 5 1:28PM ; [facility] Normal checkup (6 - 42 wk) RETU RN OB EXAM with JOSÉ MIGUEL VILLANUEVA [facility] 09/24/2014 Last Documented On 5 10:49AM ; [facility] Normal checkup (6 - 42 wk) NEW OB EXAM with ANNE LLOYD MD 09/08/2014 Last Documented On 5 10:12AM ; [facility] Amenorrhea MISSED MENSES with ANNE LLOYD MD 07/31/2014 Last Documented On 5 10:36AM ; [facility] Instructions Includes: Instructions for all patient encounters Instructions to patient Instructions for patient : B reast Self Exam discussed Last Documented On 8 3:00PM ; [facility] Instructions for patient : B reast Self Exam discussed Last Documented On 7 1:04PM ; [facility] Instructions for patient : B reast Self Exam discussed Last Documented On 6 2:54PM ; [facility] Education and Decision Aids were provided during visit for: STD screening offered and de clined Last Documented On 8 3:00PM ; [facility] Patient counseling : Use of oral contraceptives discussed in detail including rare occurrence of heart attack, stroke, and leg clots. Patient understands that smoking increases the risk of serious side effects with any steroid-based contraceptive method Last Documented On 7 1:14PM ; [facility] STD screening offered and de clined Last Documented On 7 1:04PM ; [facility] Patient counseling : Use of oral contraceptives discussed in detail including rare occurrence of heart attack, stroke, and leg clots. Patient understands that smoking increases the risk of serious side effects with any steroid-based contraceptive method Last Documented On 6 3:12PM ; [facility] STD screening offered and de clined Last Documented On 6 2:54PM ; [facility] Medical Equipment - Implanted Devices Includes: Current and historical Devices No Medical Equipment Recorded Medications Includes: Current and historical Medications Past Medications on file WILTON 3-0.02MG Oral Tablet 08/02/2016 - 07/04/2017 Provi ralph: ANNE LLOYD MD Diagnosis: One tablet daily Last Documented On 08/02/2016 1:15PM By ANNE LLOYD MD ; [facility] WILTON 3-0.02MG Oral Tablet 07/18/2016 - 08/02/2016 Provi ralph: ANNE LLOYD MD Diagnosis: One tablet daily Last Documented On 08/02/2016 1:14PM By ANNE LLOYD MD ; [facility] WILTON 3-0.02 MG Tablet 07/27/2015 - 07/18/2016 Provider: ANNE LLOYD MD Diagnosis: One tablet daily Last Documented On 07/18/2016 4:16PM By ANNE LLOYD MD ; [facility] WILTON 3-0.02 MG Tablet 07/07/2015 - 07/27/2015 Provider: ANNE LLOYD MD Diagnosis: One tablet daily Last Documented On 07/27/2015 3:11PM By ANNE LLOYD MD ; [facility] Mirena 20 MCG/24HR Intrauterine device 06/01/2015 - Provider: Diagnosis: Last Documented On 07/27/2015 2:52PM By ADÁN MARTINES CMA ; [facility] Zofran 4 MG Tablet 10/31/2014 - 11/15/2014 Provider: ANNE LLOYD MD Diagnosis: 1 every 6 hours as needed Last Documented On 10/31/2014 3:49PM By ANNE LLOYD MD ; [facility] Amoxicillin 500 MG Capsule, conventional 09/24/2014 - 10/01/2014 Provider: JOSÉ MIGUEL GRIFFIN Diagnosis: ASY BACTERIURIA-ANTEPART One tablet three times a day Last Documented On 5 10:49AM By JOSÉ MIGUEL GRIFFIN ; [facility] Multivitamin-Ultra OR TABS 07/31/2014 - 09/08 Provider: Diagnosis: Last Documented On 09/08/2014 9:31AM By SVITLANA BELL ; [facility] 19 OR TABS 07/31/2014 - 03/20/2015 Provider: ANNE LLOYD MD Diagnosis: Last Documented On 5 10:34AM By SVITLANA BELL ; [facility] Medications Administered Includes: Administered Medications in patient's chart Medications Administered Diagnosis Date Pro vider influenza vaccine IM INJ 07/31/2014 NETTA LLOYD MD pt tolerated well Last Documented On 5 10:19AM By SVITLANA BELL ; [facility] Results Includes: Results from 08/21/2023 through 08/20/2024 No Results Recorded For Specified Dates History of Present Illness History of Present Illness not supported for this document type No History of Present Illness Recorded Social History Description Last Updated In monogamous relationship 08/08/2017 Last Documented On 8 3:15PM ; [facility] Alcohol use: 2 drinks or less per day oc c 08/08/2017 Last Documented On 8 3:15PM ; [facility] Sexually active 08/08/2017 Last Documented On 8 3:15PM ; [facility] Non-smoker 08/08/2017 Last Documented On 8 3:15PM ; [facility] Smoking status : Never smoker 07/27/2015 Last Documented On 6 3:12PM ; [facility] Not sexually active 5 Last Documented On 5 10:46AM ; [facility] Medical History Includes: Medical History in patient's chart Description Last Updated Contraception: none, patient is trying t o get 08/08/2017 Last Documented On 8 3:15PM ; [facility] LMP: 07/31/2017 08/08/2017 Last Documented On 8 3:15PM ; [facility] Result: normal 08/08/2017 Last Documented On 8 3:15PM ; [facility] 1 08/08/2017 Last Documented On 8 3:15PM ; [facility] Last pap smear date 08/02/2015 08/08/2017 Last Documented On 8 3:15PM ; [facility] Para 1 08/08/2017 Last Documented On 8 3:15PM ; [facility] A colonoscopy was performed none 016 Last Documented On 6 3:12PM ; [facility] Baby thriving Maryam Real#4oz 03/20/2015 Last Documented On 5 10:46AM ; [facility] Infant is bottle-feeding 03/20/2015 Last Documented On 5 10:46AM ; [facility] Family History Includes: Family History in patient's chart No Family History Recorded Review of Systems Review of Systems not supported for this document type No Review of Systems Recorded Mental Status Description No anxiety Functional Status No Functional Status Recorded Physical Exam Physical Exam not supported for this document type No Physical Exam Recorded Immunizations Includes: Immunizations in patient's chart Vaccine Dose # Date Site Reaction(s) Status Source Influenza (Quadrivalent)36 mo.& older PF 0.5ml (SD) 1 07/31/2014 Complete (Reported) Patient Last Documented On 5 10:20AM ; [facility] Allergies Includes: Active, inactive, and resolved Allergies Substance Type Reaction Onset Date Resolved Date Statu s Amoxicillin Allergy Skin Rashes / Eruption of skin, Hives / Urticaria 09/26/2014 Active Last Documented On 08/08/2017 2:53PM ; [facility] Note: edema of feet/hands; throat felt c onstricted Insurance Includes: Active Insurance Policies Plan Name Member ID Group # Subscriber Relationship Effect bi Dates - [facility] PLAN [id number] CONNOR burgos Clinical Notes Includes: Signed Clinical Notes starting from 06/24/2022 No Clinical Notes Recorded
--- OUTSIDE RECORDS SUMMARY | 2024-08-20 09:14 | XMS_ITS | Referral Summary ---
Author Organization [facility] Address [address] [place] [phone] Care Team Providers Care Verification Engineer Name Role Phone No, Physician Primary Care Provider [phone] Allergies Active Allergy Reactions Criticality Noted Date Comments Amoxicillin Anaphylaxis High 08/25/2015 Medications ondansetron (ZOFRAN) 4 mg tablet Take 1 tablet (4 mg total) by mouth every 6 (six) hours 12 tablet 04/26/2021 Active phenazopyridine (PYRIDIUM) 100 mg tablet Take 1 tablet (100 mg total) by mouth 3 (three) times a day as needed for urinary pain 10 tablet 04/26/2021 Active Active Problems Problem Noted Date Diagnosed Date Breast pain, left 04/02/2021 Ganglion cyst 10/06/2015 Social History Tobacco Use Types Packs/Day Years Used Date Smoking Tobacco: Never Personal Safety Answer Date Recorded Getting School Help Needed Not on file 07/29 Comments No Sex and Gender Information Value Date Recorded Sex Assigned at Not on file Legal Sex 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 Gender Identity Not on file Sexual Orientation Not on file Last Filed Vital Signs Vital Sign Reading Time Taken Comments Blood Pressure 136/74 04/26/2021 7:03 PM IRRIGATION PUMP INSTALLER Pulse 101 04/26/2021 7:03 PM IRRIGATION PUMP INSTALLER Temperature 36.6 C (97.8 F) 04/26/2021 7:03 PM IRRIGATION PUMP INSTALLER Respiratory Rate 20 04/26/2021 7:03 PM IRRIGATION PUMP INSTALLER Oxygen Saturation 100% 04/26/2021 7:03 PM IRRIGATION PUMP INSTALLER Inhaled Oxygen Concentration - - Weight 108.9 kg (240 lb) 04/26/2021 7:03 PM IRRIGATION PUMP INSTALLER Height 167.6 cm (5' 6 ) 04/26/2021 7:03 PM IRRIGATION PUMP INSTALLER Body Mass Index 38.74 04/26/2021 7:03 PM IRRIGATION PUMP INSTALLER Plan of Treatment Not on file Insurance [place] [employer] [place] ACCESS OOS Care Teams Verification Engineer Relationship Specialty Start Date End Date No, Physician PCP - General 03/01/21
--- OUTSIDE RECORDS SUMMARY | 2024-08-20 09:14 | XMS_ITS ---
Care Plan - [facility] Created on: August 20, 2024 CONNOR BUTTS : 1995 Sex: Female Author Organization [facility] Address [address] [place] [address] Phone Care Team Providers Care Shale Miner Blasting Name Role Phone ANNE LLOYD MD Primary Care Provider [phone]
--- OUTSIDE RECORDS SUMMARY | 2024-08-20 09:14 | XMS_ITS | Clinical Summary ---
Author Organization [facility] Address [address] [place] [phone] Care Team Providers Care Cheese Blender Name Role Phone No, Physician Primary Care Provider [phone] Allergies Active Allergy Reactions Criticality Noted Date [...] Breast pain, left 04/02/2021 Ganglion cyst 10/06/2015 Medical History Medical History Date Comments Depression Family History Medical History Relation Name Comments Mental illness Father Mental proble m - (Added by TW Conv) Lung cancer Maternal Grandmother Breast cancer Mother's Sister sarcoma Sister Relation Name Status Comments Father Maternal Grandmother Mother's Sister Sister Social History Tobacco Use Types Packs/Day Years Used Date Smoking Tobacco: Never Personal Safety Answer Date Recorded Getting School Help Needed Not on file 07/29 Comments No Sex and Gender Information Value Date Recorded Sex Assigned at Not on file Legal 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 Gender Identity Not on file Sexual Orientation Not on file Obstetrics History Last Filed Vital Signs Vital Sign Reading Time Taken Comments Blood Pressure 136/74 04/26/2021 7:03 PM TARRING MACHINE OPERATOR Pulse 101 04/26/2021 7:03 PM TARRING MACHINE OPERATOR Temperature 36.6 C (97.8 F) 04/26/2021 7:03 PM TARRING MACHINE OPERATOR Respiratory Rate 20 04/26/2021 7:03 PM TARRING MACHINE OPERATOR Oxygen Saturation 100% 04/26/2021 7:03 PM TARRING MACHINE OPERATOR Inhaled Oxygen Concentration - - Weight 108.9 kg (240 lb) 04/26/2021 7:03 PM TARRING MACHINE OPERATOR Height 167.6 cm (5' 6 ) 04/26/2021 7:03 PM TARRING MACHINE OPERATOR Body Mass Index 38.74 04/26/2021 7:03 PM TARRING MACHINE OPERATOR Plan of Treatment Not on file Insurance [place] CHO[place]F [place] [employer] ACC[employer] OOS Care Teams Cheese Blender Relationship Specialty Start Date End Date No, Physician PCP - General 03/01/21
--- OUTSIDE RECORDS SUMMARY | 2024-08-20 09:14 | XMS_ITS | Clinical Summary ---
Author Organization [facility] Address [address] [place] [phone] Phone Care Team Providers Care Ships Equipment Engineer Name Role Phone ANNE LLOYD MD Primary [...] Active Last Documented On 08/08/2017 2:53PM ; [facility] Note: edema of feet/hands; throat felt c onstricted Encounters Encounter Provider Location Date Check-In Time Check-Out Time Diagnosis [Patient Encounter] ANNE LLOYD MD 09/05/2016 9:36AM 11:59PM Insurance Includes: Active Insurance Policies Plan Name Member ID Group # Subscriber Relationship Effect bi Dates - COUNT INCLUDES [facility] PLAN [id number] CONNOR burgos Clinical Notes Includes: Clinical Notes from this encounter No Clinical Notes Recorded
[2024-08-20 19:36] LABS: Hematocrit 38.1 % (37.0-47.0); Hemoglobin 11.9 g/dL (12.0-15.0); Mean Corpuscular HGB Conc 31.2 g/dl (32-36); Mean Corpuscular Hemoglobin 30.8 pg (26-34); Mean Corpuscular Volume 98.7 fl (80-100); Mean Platelet Volume 9.6 fl (7.4-10.4); Platelet Count Result 368 k/mm3 (150-375); Red Blood Count 3.86 M/mm3 (4.2-5.4); White Blood Count 8.1 K/mm3 (4.5-10.0)
[2024-08-20 19:42] LABS: Alanine Aminotransferase 15 U/L (6-35); Albumin Level 4.5 g/dL (3.5-5.1); Alkaline Phosphatase 57 U/L (38-126); Anion Gap 9 mmol/L (4-12); Aspartate Amino Transferase 54 U/L (14-36); Bilirubin,Total 0.4 mg/dL (0.2-1.3); Blood Urea Nitrogen 12 mg/dL (7-17); Calcium 9.4 mg/dL (8.4-10.2); Carbon Dioxide 26 mmol/L (22-30); Chloride 100 mmol/L (98-107); Cholesterol 246 mg/dL (0-200); Estimated Glomerular Filt Rate > 60; Glucose 68 mg/dL (65-110); HDL Direct 53 mg/dL; Potassium 4.3 mmol/L (3.4-5.0); Sodium 135 mmol/L (137-145); Triglycerides 168 mg/dL (<150)
[2024-08-20 19:53] LABS: LDL Cholesterol Direct 145 mg/dL
[2024-08-20 19:58] LABS: Hemoglobin A1C 4.9 % (<5.7)
[2024-08-20 20:03] LABS: Erythrocyte Sedimentation Rate 15 mm/hr (0-20)
[2024-08-20 20:05] LABS: Vitamin D 25 Hydroxy 24.8 ng/mL
[2024-08-22 09:29] LABS: Thyroid Peroxidase Antibodies <1 IU/mL (<9)
== END 2024-08-20 08:51 | disposition home or self-care (01) ==
LOC: ANHBWCLAB 08:51
PROVIDERS: PCP Nurse Practitioner Adult Health; Visit Provider Nurse Practitioner Adult Health
DX: Z51.81 Encounter for therapeutic drug level monitoring (principal); Z13.9 Encounter for screening, unspecified; L50.8 Other urticaria; R53.83 Other fatigue; E66.9 Obesity, unspecified; E04.9 Nontoxic goiter, unspecified; Z79.899 Other long term (current) drug therapy
CPT/HCPCS: 36415; 80053; 80061; 82306; 82607; 83036; 84439; 84443; 85027; 85652; 86376

== ENCOUNTER 2024-09-11 08:40 | Outpatient (CLI) | payer BC, SELFPAY ==
--- OUTSIDE RECORDS SUMMARY | 2024-09-11 09:11 | XMS_ITS ---
Author Organization [facility] Address [address] [place] [address] Phone Care Team Providers Care District Fire Chief Name Role Phone ANNE LLOYD MD Primary Care Provider [phone] Plan of Treatment Findings Encounter Date Ordered Clinical summary pro vided to patient RETURN OB EXAM with JOSÉ MIGUEL VILLANUEVA [facility]- 12/26/2014 Last Documented On 5 2:05PM ; [facility] Ordered Clinical summary pro vided to patient RETURN OB EXAM with JOSÉ MIGUEL VILLANUEVA [facility]- 12/12/2014 Last Documented On 5 1:43PM ; [facility] Instructions to patient Instructions for patient : B reast Self Exam discussed Last Documented On 8 3:00PM ; [facility] Instructions for patient : B reast Self Exam discussed Last Documented On 7 1:04PM ; [facility] Instructions for patient : B reast Self Exam discussed Last Documented On 6 2:54PM ; [facility] Education and Decision Aids were provided during visit for: STD screening offered and de clined Last Documented On 8 3:00PM ; [facility] Patient counseling : Use of oral contraceptives discussed in detail including rare occurrence of heart attack, stroke, and leg clots. Patient understands that smoking increases the risk of serious side effects with any steroid-based contraceptive method Last Documented On 7 1:14PM ; [facility] STD screening offered and de clined Last Documented On 7 1:04PM ; [facility] Patient counseling : Use of oral contraceptives discussed in detail including rare occurrence of heart attack, stroke, and leg clots. Patient understands that smoking increases the risk of serious side effects with any steroid-based contraceptive method Last Documented On 6 3:12PM ; [facility] STD screening offered and de clined Last Documented On 6 2:54PM ; [facility] Assessments Includes: Assessments for all patient encounters Findings Encounter Date Routine pelvic exam CORRECTIONAL CLASSIFICATION COUNSELOR EXAM with ANNE LLOYD MD 08/08/2017 Last Documented On 8 3:15PM ; [facility] Routine pelvic exam CORRECTIONAL CLASSIFICATION COUNSELOR EXAM with ANNE LLOYD MD 08/02/2016 Last Documented On 7 1:17PM ; [facility] Routine pelvic exam CORRECTIONAL CLASSIFICATION COUNSELOR EXAM with ANNE LLOYD MD 07/27/2015 Last Documented On 6 3:12PM ; [facility] Contraceptive management RECHECK with ANNE ALVARENGA MD 06/01/2015 Last Documented On 5 11:10AM ; [facility] Contraceptive management: In sertion of IUD POST VISIT with ANNE LLOYD MD 03/20/2015 Last Documented On 5 10:46AM ; [facility] Normal checkup (6 - 42 wk) * PHONE CALL with ANNE LLOYD MD 02/03/2015 Last Documented On 5 8:44AM ; [facility] Normal checkup (6 - 42 wk) RETURN OB EX AM with ANNE LLOYD MD 02/02/2015 Last Documented On 5 1:56PM ; [facility] Normal checkup (6 - 42 wk) RETURN OB EX AM with ANNE LLOYD MD 01/26/2015 Last Documented On 5 1:54PM ; [facility] Normal checkup (6 - 42 wk) RETURN OB EX AM with ANNE LLOYD MD 01/19/2015 Last Documented On 5 2:14PM ; [facility] Vaginal discharge RETURN OB EXAM with ANNE ALVARENGA MD 01/19/2015 Last Documented On 5 2:14PM ; [facility] Normal checkup (6 - 42 wk) * PHONE CALL with ANNE LLOYD MD 01/16/2015 Last Documented On 5 9:43AM ; [facility] Normal checkup (6 - 42 wk) RETURN OB EX AM with ANNE LLOYD MD 01/12/2015 Last Documented On 5 3:45PM ; [facility] Normal checkup (6 - 42 wk) RETURN OB EX AM with ANNE LLOYD MD 01/05/2015 Last Documented On 5 3:02PM ; [facility] Normal checkup (6 - 42 wk) * PH ONE CALL with JOSÉ MIGUEL VILLANUEVA [facility] 12/29/2014 Last Documented On 5 8:59AM ; [facility] Normal checkup (6 - 42 wk) RETU RN OB EXAM with JOSÉ MIGUEL VILLANUEVA [facility]- 12/26/2014 Last Documented On 5 2:05PM ; [facility] Normal checkup (6 - 42 wk) * PH ONE CALL with JOSÉ MIGUEL VILLANUEVA [facility] 12/16/2014 Last Documented On 5 4:06PM ; [facility] Normal checkup (6 - 42 wk) * PH ONE CALL with JOSÉ MIGUEL VILLANUEVA [facility] 12/15/2014 Last Documented On 5 11:51AM ; [facility] Normal checkup (6 - 42 wk) RETU RN OB EXAM with JOSÉ MIGUEL VILLANUEVA [facility]- 12/12/2014 Last Documented On 5 1:43PM ; [facility] Normal checkup (6 - 42 wk) RETU RN OB EXAM with JOSÉ MIGUEL VILLANUEVA [facility] 11/17/2014 Last Documented On 5 10:30AM ; [facility] Normal checkup (6 - 42 wk) * PHONE CALL with ANNE LLOYD MD 10/31/2014 Last Documented On 5 4:41PM ; [facility] Normal checkup (6 - 42 wk) * PHONE CALL with ANNE LLOYD MD 10/31/2014 Last Documented On 5 3:49PM ; [facility] Normal checkup (6 - 42 wk) * PHONE CALL with ANNE LLOYD MD 10/29/2014 Last Documented On 5 9:39AM ; [facility] Normal checkup (6 - 42 wk) * PHONE CALL with ANNE LLOYD MD 10/28/2014 Last Documented On 5 1:33PM ; [facility] Normal checkup (6 - 42 wk) RETURN OB EX AM with ANNE LLOYD MD 10/20/2014 Last Documented On 5 1:38PM ; [facility] Normal checkup (6 - 42 wk) * PHONE CALL with ANNE LLOYD MD 09/26/2014 Last Documented On 5 1:28PM ; [facility] Normal checkup (6 - 42 wk) RETU RN OB EXAM with JOSÉ MIGUEL VILLANUEVA [facility] 09/24/2014 Last Documented On 5 10:49AM ; [facility] Normal checkup (6 - 42 wk) NEW OB EXAM with ANNE LLOYD MD 09/08/2014 Last Documented On 5 10:12AM ; [facility] Amenorrhea MISSED MENSES with ANNE LLOYD MD 07/31/2014 Last Documented On 5 10:36AM ; [facility] Instructions Includes: Instructions for all patient encounters Instructions to patient Instructions for patient : B reast Self Exam discussed Last Documented On 8 3:00PM ; [facility] Instructions for patient : B reast Self Exam discussed Last Documented On 7 1:04PM ; [facility] Instructions for patient : B reast Self Exam discussed Last Documented On 6 2:54PM ; [facility] Education and Decision Aids were provided during visit for: STD screening offered and de clined Last Documented On 8 3:00PM ; [facility] Patient counseling : Use of oral contraceptives discussed in detail including rare occurrence of heart attack, stroke, and leg clots. Patient understands that smoking increases the risk of serious side effects with any steroid-based contraceptive method Last Documented On 7 1:14PM ; [facility] STD screening offered and de clined Last Documented On 7 1:04PM ; [facility] Patient counseling : Use of oral contraceptives discussed in detail including rare occurrence of heart attack, stroke, and leg clots. Patient understands that smoking increases the risk of serious side effects with any steroid-based contraceptive method Last Documented On 6 3:12PM ; [facility] STD screening offered and de clined Last Documented On 6 2:54PM ; [facility] Medical Equipment - Implanted Devices Includes: Current and historical Devices No Medical Equipment Recorded Medications Includes: Current and historical Medications Past Medications on file WILTON 3-0.02MG Oral Tablet 08/02/2016 - 07/04/2017 Provi ralph: ANNE LLOYD MD Diagnosis: One tablet daily Last Documented On 08/02/2016 1:15PM By ANNE LLOYD MD ; [facility] WILTON 3-0.02MG Oral Tablet 07/18/2016 - 08/02/2016 Provi ralph: ANNE LLOYD MD Diagnosis: One tablet daily Last Documented On 08/02/2016 1:14PM By ANNE LLOYD MD ; [facility] WILTON 3-0.02 MG Tablet 07/27/2015 - 07/18/2016 Provider: ANNE LLOYD MD Diagnosis: One tablet daily Last Documented On 07/18/2016 4:16PM By ANNE LLOYD MD ; [facility] WILTON 3-0.02 MG Tablet 07/07/2015 - 07/27/2015 Provider: ANNE LLOYD MD Diagnosis: One tablet daily Last Documented On 07/27/2015 3:11PM By ANNE LLOYD MD ; [facility] Mirena 20 MCG/24HR Intrauterine device 06/01/2015 - Provider: Diagnosis: Last Documented On 07/27/2015 2:52PM By ADÁN MARTINES CMA ; [facility] Zofran 4 MG Tablet 10/31/2014 - 11/15/2014 Provider: ANNE LLOYD MD Diagnosis: 1 every 6 hours as needed Last Documented On 10/31/2014 3:49PM By ANNE LLOYD MD ; [facility] Amoxicillin 500 MG Capsule, conventional 09/24/2014 - 10/01/2014 Provider: JOSÉ MIGUEL GRIFFIN Diagnosis: ASY BACTERIURIA-ANTEPART One tablet three times a day Last Documented On 5 10:49AM By JOSÉ MIGUEL GRIFFIN ; [facility] Multivitamin-Ultra OR TABS 07/31/2014 - 09/08 Provider: Diagnosis: Last Documented On 09/08/2014 9:31AM By SVITLANA BELL ; [facility] 19 OR TABS 07/31/2014 - 03/20/2015 Provider: ANNE LLOYD MD Diagnosis: Last Documented On 5 10:34AM By SVITLANA BELL ; [facility] Medications Administered Includes: Administered Medications in patient's chart Medications Administered Diagnosis Date Pro vider influenza vaccine IM INJ 07/31/2014 NETTA LLOYD MD pt tolerated well Last Documented On 5 10:19AM By SVITLANA BELL ; [facility] Results Includes: Results from 09/12/2023 through 09/11/2024 No Results Recorded For Specified Dates History of Present Illness History of Present Illness not supported for this document type No History of Present Illness Recorded Social History Description Last Updated In monogamous relationship 08/08/2017 Last Documented On 8 3:15PM ; [facility] Alcohol use: 2 drinks or less per day oc c 08/08/2017 Last Documented On 8 3:15PM ; [facility] Sexually active 08/08/2017 Last Documented On 8 3:15PM ; [facility] Non-smoker 08/08/2017 Last Documented On 8 3:15PM ; [facility] Smoking status : Never smoker 07/27/2015 Last Documented On 6 3:12PM ; [facility] Not sexually active 5 Last Documented On 5 10:46AM ; [facility] Medical History Includes: Medical History in patient's chart Description Last Updated Contraception: none, patient is trying t o get 08/08/2017 Last Documented On 8 3:15PM ; [facility] LMP: 07/31/2017 08/08/2017 Last Documented On 8 3:15PM ; [facility] Result: normal 08/08/2017 Last Documented On 8 3:15PM ; [facility] 1 08/08/2017 Last Documented On 8 3:15PM ; [facility] Last pap smear date 08/02/2015 08/08/2017 Last Documented On 8 3:15PM ; [facility] Para 1 08/08/2017 Last Documented On 8 3:15PM ; [facility] A colonoscopy was performed none 016 Last Documented On 6 3:12PM ; [facility] Baby thriving Maryam Real#4oz 03/20/2015 Last Documented On 5 10:46AM ; [facility] is bottle-feeding 03/20/2015 Last Documented On 5 10:46AM ; [facility] Family History Includes: Family History in patient's [...] Patient Last Documented On 5 10:20AM ; [facility] Allergies Includes: Active, inactive, and resolved Allergies Substance Type Reaction Onset Date Resolved Date Statu s Amoxicillin Allergy Skin Rashes / Eruption of skin, Hives / Urticaria 09/26/2014 Active Last Documented On 08/08/2017 2:53PM ; [facility] Note: edema of feet/hands; throat felt c onstricted Insurance Includes: Active Insurance Policies Plan Name Member ID Group # Subscriber Relationship Effect bi Dates - [facility] PLAN [id number] [employer] Clinical Notes Includes: Signed Clinical Notes starting from 06/24/2022 No Clinical Notes Recorded
--- OUTSIDE RECORDS SUMMARY | 2024-09-11 09:11 | XMS_ITS | Clinical Summary ---
Author Organization [facility] Address [address] [place] [phone] Phone Care Team Providers Care Oil Expeller Operator Name Role Phone ANNE LLOYD MD [...] Last Documented On 08/08/2017 2:53PM ; [facility] Note: edema of feet/hands; throat felt c onstricted Encounters Encounter Provider Location Date Check-In Time Check-Out Time Diagnosis [Patient Encounter] ANNE LLOYD MD 09/02/2016 1:14PM 11:59PM Insurance Includes: Active Insurance Policies Plan Name Member ID Group # Subscriber Relationship Effect bi Dates - [facility] [id number] [employer] Clinical Notes Includes: Clinical Notes from this encounter No Clinical Notes Recorded
--- OUTSIDE RECORDS SUMMARY | 2024-09-11 09:11 | XMS_ITS | Referral Summary ---
Author Organization [facility] Address [address] [place] [phone] Care Team Providers Care Real Estate Sales Manager Name Role Phone No, Physician Primary Care Provider [phone] Allergies Active Allergy Reactions Criticality Noted Date [...] on file Legal Sex Female 11:07 AM CAR WRECKER Gender Identity Not on file Sexual Orientation Not on file Last Filed Vital Signs Vital Sign Reading Time Taken Comments Blood Pressure 136/74 04/26/2021 7:03 PM CAR WRECKER Pulse 101 04/26/2021 7:03 PM CAR WRECKER Temperature 36.6 C (97.8 F) 04/26/2021 7:03 PM CAR WRECKER Respiratory Rate 20 04/26/2021 7:03 PM CAR WRECKER Oxygen Saturation 100% 04/26/2021 7:03 PM CAR WRECKER Inhaled Oxygen Concentration - - Weight 108.9 kg (240 lb) 04/26/2021 7:03 PM CAR WRECKER Height 167.6 cm (5' 6 ) 04/26/2021 7:03 PM CAR WRECKER Body Mass Index 38.74 04/26/2021 7:03 PM CAR WRECKER Plan of Treatment Not on file Insurance [place] Care Teams Real Estate Sales Manager Relationship Specialty Start Date End Date No, Physician PCP - General 03/01/21
--- OUTSIDE RECORDS SUMMARY | 2024-09-11 09:11 | XMS_ITS | Clinical Summary ---
Author Organization [facility] Address [address] [place] [address] Phone Care Team Providers Care Sweat Box Attendant Name Role Phone ANNE LLOYD MD Primary Care Provider [phone] Reason for Visit and Chief Complaint The Chief Complaint is: Annual exam Plan of Treatment Contraception: continue OCP - Last Documented On 08/02/2016 1:17PM ; [facility] Instructions to patient Instructions for patient : B reast Self Exam discussed Last Documented On 7 1:04PM ; [facility] Education and Decision Aids were provided during visit for: Patient counseling : Use of oral contraceptives discussed in detail including rare occurrence of heart attack, stroke, and leg clots. Patient understands that smoking increases the risk of serious side effects with any steroid-based contraceptive method Last Documented On 7 1:14PM ; [facility] STD screening offered and de clined Last Documented On 7 1:04PM ; [facility] Assessments Includes: Assessments from this encounter Findings - Routine pelvic exam - Last Documented On 08/02/2016 1:17PM ; [facility] Instructions Includes: Instructions from this encounter Instructions to patient Instructions for patient : B reast Self Exam discussed Last Documented On 7 1:04PM ; [facility] Education and Decision Aids were provided during visit for: Patient counseling : Use of oral contraceptives discussed in detail including rare occurrence of heart attack, stroke, and leg clots. Patient understands that smoking increases the risk of serious side effects with any steroid-based contraceptive method Last Documented On 7 1:14PM ; [facility] STD screening offered and de clined Last Documented On 7 1:04PM ; [facility] Medical Equipment - Implanted Devices Includes: Current Devices No Medical Equipment Recorded Medications Includes: Medications discussed during this encounter and other current Medications New / Renewed during this visit ANNE LLOYD MD on 08/02/2016 WILTON 3-0.02MG Oral Tablet Provider: NETTA LLOYD MD 84 day supply: 84 tablet, 3 refills Diagnosis: One tablet daily [facility] [address], [phone] - Last Documented On 08/02/2016 1:15PM By ANNE LLOYD MD ; [facility] Past Medications on file Zofran 4 MG Tablet 10/31/2014 - 11/15/2014 Provider: ANNE LLOYD MD Diagnosis: 1 every 6 hours as needed Last Documented On 10/31/2014 3:49PM By ANNE LLOYD MD ; [facility] Amoxicillin 500 MG Capsule, conventional 09/24/2014 - 10/01/2014 Provider: JOSÉ MIGUEL VILLANUEVA LINN Diagnosis: ASY BACTERIURIA-ANTEPART One tablet three times a day Last Documented On 5 10:49AM By JOSÉ MIGUEL VILLANUEVA LANCE- ; [facility] Medications Administered Includes: Administered [...] 08/02/2016 Last Documented On 7 1:17PM ; [facility] Alcohol use: 2 drinks or less per day oc c 08/02/2016 Last Documented On 7 1:17PM ; [facility] Sexually active 08/02/2016 Last Documented On 7 1:17PM ; [facility] Non-smoker 08/02/2016 Last Documented On 7 1:17PM ; [facility] Smoking Status Unknown Procedures and Surgical History Includes: Procedures from this encounter Procedures Code Diagnosis Performing Provider Service L ocation Service Date Clinical summary provided to patient Last Documented On 7 1:04PM ; [facility] cervical Pap smear 28045 Last Documented On 7 1:04PM ; [facility] Medical History Includes: Medical History addressed during this encounter Description Last Updated LMP: 07/19/2016 08/02/2016 Last Documented On 7 1:17PM ; [facility] Contraception: pill 08/02/2016 Last Documented On 7 1:17PM ; [facility] 1 08/02/2016 Last Documented On 7 1:17PM ; [facility] Last pap smear date 07/27/2015 08/02/2016 Last Documented On 7 1:17PM ; [facility] Para 1 08/02/2016 Last Documented On 7 1:17PM ; [facility] Family History Includes: Family History addressed during [...] Active Last Documented On 08/08/2017 2:53PM ; [facility] Note: edema of feet/hands; throat felt c onstricted Encounters Encounter Provider Location Date Check-In Time Check-Out Time Diagnosis MEAT LUGGER EXAM ANNE LLOYD MD [facility] [address] PRODUCTION MANAGER 12:49PM 1:16PM Routine Pelvic Exam Insurance Includes: Active Insurance Policies Plan Name Member ID Group # Subscriber Relationship Effect bi Dates 1 - [facility] [id number] [employer] Clinical Notes Includes: Clinical Notes from this encounter No Clinical Notes Recorded
--- OUTSIDE RECORDS SUMMARY | 2024-09-11 09:11 | XMS_ITS | Clinical Summary ---
Author Organization [facility] Address [address] [place] [address] Phone Care Team Providers Care Artist Woodblock Name Role Phone ANNE LLOYD MD Primary [...] Last Documented On 08/08/2017 3:15PM ; [facility] Instructions to patient Instructions for patient : B reast Self Exam discussed Last Documented On 8 3:00PM ; [facility] Education and Decision Aids were provided during visit for: STD screening offered and de clined Last Documented On 8 3:00PM ; [facility] Assessments Includes: Assessments from this encounter Findings - Routine pelvic exam - Last Documented On 08/08/2017 3:15PM ; [facility] Instructions Includes: Instructions from this encounter Instructions to patient Instructions for patient : B reast Self Exam discussed Last Documented On 8 3:00PM ; [facility] Education and Decision Aids were provided during visit for: STD screening offered and de clined Last Documented On 8 3:00PM ; [facility] Medical Equipment - Implanted Devices Includes: Current Devices No Medical Equipment Recorded Medications Includes: Medications discussed during this encounter and other current Medications Past Medications on file WILTON 3-0.02MG Oral Tablet 08/02/2016 - 07/04/2017 Provi ralph: ANNE LLOYD MD Diagnosis: One tablet daily Last Documented On 08/02/2016 1:15PM By ANNE LLOYD MD ; [facility] Zofran 4 MG Tablet 10/31/2014 - 11/15/2014 Provider: ANNE LLOYD MD Diagnosis: 1 every 6 hours as needed Last Documented On 10/31/2014 3:49PM By ANNE LLOYD MD ; [facility] Amoxicillin 500 MG Capsule, conventional 09/24/2014 - 10/01/2014 Provider: JOSÉ MIGUEL GRIFFIN Diagnosis: ASY BACTERIURIA-ANTEPART One tablet three times a day Last Documented On 5 10:49AM By JOSÉ MIGUEL GRIFFIN ; [facility] Medications Administered Includes: Administered Medications from this encounter No Administered Medications Recorded Vital Signs Includes: Vital Signs from this encounter Vital Name 08/08/2017 02:52P Blood Pressure Sitting (mmHg) 124/70 Pulse Rate-Sitting (bpm) 102 Height (in) 66 Weight (lb) 246.4 Body Mass Index (kg/m2) 39.8 Body Surface Area (m2) 2.2 Last Documented: On 08/08/2017 2:56PM ; [facility] Results Includes: Results discussed during [...] Last Documented On 8 3:15PM ; [facility] Alcohol use: 2 drinks or less per day oc c 08/08/2017 Last Documented On 8 3:15PM ; [facility] Sexually active 08/08/2017 Last Documented On 8 3:15PM ; [facility] Non-smoker 08/08/2017 Last Documented On 8 3:15PM ; [facility] Smoking Status Unknown Procedures and Surgical History Includes: Procedures from this encounter Procedures Code Diagnosis Performing Provider Service L ocation Service Date Clinical summary provided to patient Last Documented On 8 3:00PM ; [facility] cervical Pap smear 75046 Last Documented On 8 3:00PM ; [facility] Medical History Includes: Medical History addressed during this encounter Description Last Updated Contraception: none, patient is trying t o get 08/08/2017 Last Documented On 8 3:15PM ; [facility] LMP: 07/31/2017 08/08/2017 Last Documented On 8 3:15PM ; [facility] Result: normal 08/08/2017 Last Documented On 8 3:15PM ; [facility] 1 08/08/2017 Last Documented On 8 3:15PM ; [facility] Last pap smear date 08/02/2015 08/08/2017 Last Documented On 8 3:15PM ; [facility] Para 1 08/08/2017 Last Documented On 8 3:15PM ; [facility] Family History Includes: Family History addressed during [...] Last Documented On 08/08/2017 2:53PM ; [facility] Note: edema of feet/hands; throat felt c onstricted Encounters Encounter Provider Location Date Check-In Time Check-Out Time Diagnosis [employer]ICE REPRESENTATIVE EXAM ANNE LLOYD MD [facility] GRADUATE CIVIL ENGINEER 8 2:48PM 3:16PM Routine Pelvic Exam Insurance Includes: Active Insurance Policies Plan Name Member ID Group # Subscriber Relationship Effect bi Dates - [facility] [id number] CONNOR burgos Clinical Notes Includes: Clinical Notes from this encounter No Clinical Notes Recorded
--- OUTSIDE RECORDS SUMMARY | 2024-09-11 09:11 | XMS_ITS | Clinical Summary ---
Author Organization [facility] Address [address] [place] [id number] Care Team Providers Care Glaze Maker Name Role Phone No, Physician Primary Care Provider [phone] Allergies Active Allergy Reactions Criticality Noted Date [...] on file Legal Sex Female 11:07 AM CNC ROUTER OPERATOR Gender Identity Not on file Sexual Orientation Not on file Obstetrics History Last Filed Vital Signs Vital Sign Reading Time Taken Comments Blood Pressure 136/74 04/26/2021 7:03 PM CNC ROUTER OPERATOR Pulse 101 04/26/2021 7:03 PM CNC ROUTER OPERATOR Temperature 36.6 C (97.8 F) 04/26/2021 7:03 PM CNC ROUTER OPERATOR Respiratory Rate 20 04/26/2021 7:03 PM CNC ROUTER OPERATOR Oxygen Saturation 100% 04/26/2021 7:03 PM CNC ROUTER OPERATOR Inhaled Oxygen Concentration - - Weight 108.9 kg (240 lb) 04/26/2021 7:03 PM CNC ROUTER OPERATOR Height 167.6 cm (5' 6 ) 04/26/2021 7:03 PM CNC ROUTER OPERATOR Body Mass Index 38.74 04/26/2021 7:03 PM CNC ROUTER OPERATOR Plan of Treatment Not on file Insurance [employer] [place] [employer] Care Teams Glaze Maker Relationship Specialty Start Date End Date No, Physician PCP - General 03/01/21
--- OUTSIDE RECORDS SUMMARY | 2024-09-11 09:11 | XMS_ITS ---
Care Plan - [facility] Created on: September 11, 2024 CONNOR BUTTS : 1995 Sex: Female Author Organization [facility] Address [address] [place] [address] Phone Care Team Providers Care Head Loft Worker Name Role Phone ANNE LLOYD MD Primary Care Provider [phone]
--- OUTSIDE RECORDS SUMMARY | 2024-09-11 09:11 | XMS_ITS | Clinical Summary ---
Author Organization [facility] Address [address] [place] [phone] Phone Care Team Providers Care Supervisor Paper Coating Name Role Phone ANNE LLOYD MD Primary [...] Active Last Documented On 08/08/2017 2:53PM ; [facility] Note: edema of feet/hands; throat felt c onstricted Encounters Encounter Provider Location Date Check-In Time Check-Out Time Diagnosis [Patient Encounter] ANNE LLOYD MD 09/05/2016 9:36AM 11:59PM Insurance Includes: Active Insurance Policies Plan Name Member ID Group # Subscriber Relationship Effect bi Dates - [facility] PLAN [id number] CONNOR burgos Clinical Notes Includes: Clinical Notes from this encounter No Clinical Notes Recorded
--- OUTSIDE RECORDS SUMMARY | 2024-09-11 09:11 | XMS_ITS | Data Portability ---
Author Organization [facility] [place], [place] Address [address] [place] [address] [place] [address] Care Team Providers Care Correctional Probation Officer Name Role Phone SUSAN MARTINEZ Primary Care Provider [phone] Assessment Encounter Date Assessment Date Assessment LastModified by Organization Details LastModified Time 03/13/2021 03/13/2021 Time spent in visit is a total of 32 mins with at least 50% of visit consisting of counseling and review of plan of care. Additional precautionary measures were taken to minimize potential exposure to the Covid-19 virus during this patient s visit, including available hand auditing manager upon arrive, temperature check and being asked a series of screening questions. All staff wore face coverings during this encounter, as well as provided additional cleaning and sanitizing of all surfaces, including countertops, pens, chairs, door handles, light switches, etc, prior to and following the patient s visit. [email or web address] Not available 03/13/2021 13:12:30 03/23/2023 03/23/2023 Annual gynecological exam performed. Patient will come back in a year unless there are new symptoms. [email or web address] Not available 03/23/2023 11:03:20 05/01/2024 05/01/2024 Annual gynecological exam performed. Patient will come back in a year unless there are new symptoms. Not available 05/01/2024 10:16:17 Plan of Treatment Reminders Order Date Submit Date Provider Last Modified By Organization Details Last Modified Time Details Appointments None recorded. Lab None recorded. Referral nutritionis t/dietitian referral [address], [address], [address], [place], [address], 2 05:00:41 Procedures None recorded. Surgeries None recorded. Imaging US, transvagina l 2020 [email or web address] [address], [address], [place], [address], 17:02:55 US, pelvis, complete 2020 021 [email or web address] [address], [address], [place], [address], 2 16:27:15 Medication Orders clindamycin HCl 300 mg capsule 2020 021 [email or web address] 1 [facility] #[id number], [address], [place], [place], [id number], 3 11:04:34 Pyridium 100 mg tablet 2020 021 [email or web address] [address] [id number], [address], [place], [place], [id number], 3 11:05:07 Lo Loestrin Fe 1 mg-10 mcg (24)/10 mcg (2) tablet [email or web address] [facility] #29645, [address], [place], [place], [id number], 1 09:53:24 Patient TargetsNo targets recorded. Patient InstructionsNo instructions recorded. 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 CUT OFF SAW OPERATOR Order ing Locat ion: [place] [facility] Recei jonathan: 03/02 0750 First Scree n: Sol Blunt Speci men: Scree nilesh Pap - Image d, Cervi x STATE MENT OF ADEQU ACY: Satis facto ry for evalu ation Trans forma tion zone compo nent prese nt FINAL DIAGN OSIS: Negat bi for Intra epith jethro stewart or Martin uribe (NIL) Elect salima farrar lisa d by Sol Blunt on 2020 at 5:08 PM ----- ----- ----- ----- ----- ----- ----- ----- ----- ----- ----- ----- ----- ----- ----- ----- ----- ---- COMME NT: Note: This speci men was revie wed by a Cytot echno logis t and/o r Patho logis t (as indic ated in this repor t) after evalu ation using the Thinp rep Imagi ng Syste m. CLINI ED INFOR MATIO N: Menst rual Statu s: LMP (if appli cable ): 021 Clini ed Histo ry/Pr eviou s Pap: Type of Neopl laura (if appli cable ): Signi fican t Clini ed Findi ngs: Other Histo ry: Hormo cristal (if appli cable ): PAP EDUCA TIN L NOTE: The Pap Test is a scree nilesh test with an inher ent false negat bi rate. Liqui d-bas e sampl ing may decre ase, but will not elimi adam, false negat bi resul ts. A negat bi resul t does not precl ude the prese nce and/o r devel opmen t of disea se, since the prese nce of abnor mal cells in the sampl e depen ds on the locat ion of the lesio n and sampl ing techn ique. Shannon nued regul ar scree nilesh is the best metho d of cance r preve ntion . If repor mitch cytol ogic findi ng do not corre late with physi ed and/o r histo rical findi ngs, furth er inves tigat ion is recom vee d, as clini sophie warrnaomi nted. Not Available [facility] (Lab) [address] [facility], [place], [address], 03/05/2021 18:10:34 03/01/20 21 03/01/2021 TRICH OMONA S VAGIN DOMO (RRNA ) trichomonas vaginalis ribosomal RNA (rrna) Negati ve negati ve Not Available [facility] (Lab) [address] [facility], [place], [address], 03/05/2021 18:10:34 03/01/20 21 03/01/2021 CT/GC (ROBERT) , THINP REP VIAL chlamydia trachomatis, PCR Negati ve negati ve Not Available [facility] (Lab) [address] [facility], [place], [address], 03/05/2021 18:10:35 03/01/20 21 03/01/2021 CT/GC (ROBERT) , THINP REP VIAL neisseria gonorrhoeae, PCR Negati ve negati ve Not Available [facility] (Lab) [address] [facility], [place], [address], 03/05/2021 18:10:35 03/04/20 21 03/04/2021 CBC W/DIF F WBC 7.0 10'3/ uL 3.6-10 .2 Not Available [facility] (Lab) [address] [facility], [place], [address], 03/09/2021 18:44:12 03/04/20 21 03/04/2021 CBC W/DIF F RBC 4.20 10'6/ uL (based on docume nted legal sex) 4.10-5 .30 Not Available [facility] (Lab) [address] , [place], [address], 03/09/2021 18:44:12 03/04/20 21 03/04/2021 CBC W/DIF F HGB 12.6 g/dL (based on docume nted legal sex) 11.9-1 5.8 Not Available [facility] (Lab) [address] , [place], [address], 03/09/2021 18:44:12 03/04/20 21 03/04/2021 CBC W/DIF F HCT 40.0 % (based on docume nted legal sex) 37.4-4 8.3 Not Available [facility] (Lab) [address] [facility], [place], [address], 03/09/2021 18:44:12 03/04/20 21 03/04/2021 CBC W/DIF F MCV 95.0 fL 82.0-9 9.0 Not Available [facility] (Lab) [address], [place], [address], 03/09/2021 18:44:12 03/04/20 21 03/04/2021 CBC W/DIF F MCH 30.0 pg 27.0-3 3.0 Not Available [facility] (Lab) [address] [facility], [place], [address], 03/09/2021 18:44:12 03/04/20 21 03/04/2021 CBC W/DIF F MCHC 32.0 g/dL 32.0-3 6.0 Not Available [facility] (Lab) [address] [facility], [place], [address], 03/09/2021 18:44:12 03/04/20 21 03/04/2021 CBC W/DIF F RDW 13.0 % 11.0-1 5.0 Not Available [facility] (Lab) [address] [facility], [place], [address], 03/09/2021 18:44:12 03/04/20 21 03/04/2021 CBC W/DIF F plt 318 10'3/ uL 150-45 0 Not Available [facility] (Lab) [address] [facility], [place], [address], 03/09/2021 18:44:12 03/04/20 21 03/04/2021 CBC W/DIF F MPV 10.5 fL 9.8-12 .7 Not Available [facility] (Lab) [address] [facility], [place], [address], 03/09/2021 18:44:12 03/04/20 21 03/04/2021 CBC W/DIF F NRBC's 0.00 % 0 Not Available [facility] (Lab) [address] [facility], [place], [address], 03/09/2021 18:44:12 03/04/20 21 03/04/2021 CBC W/DIF F absolute NRBCs 0.0 10'3/ uL 0 Not Available [facility] (Lab) [address] [facility], [place], [address], 03/09/2021 18:44:12 03/04/20 21 03/04/2021 CBC W/DIF F neutrophils 55.0 % 37.0-7 2.0 Not Available [facility] (Lab) [address] [facility], [place], [address], 03/09/2021 18:44:12 03/04/20 21 03/04/2021 CBC W/DIF F lymphocytes 36.0 % 16.0-4 8.0 Not Available [facility] (Lab) [address] [facility], [place], [address], 03/09/2021 18:44:12 03/04/20 21 03/04/2021 CBC W/DIF F monocytes 7.0 % 4.0-14 .0 Not Available [facility] (Lab) [address] [facility], [place], [address], 03/09/2021 18:44:12 03/04/20 21 03/04/2021 CBC W/DIF F eosinophils 1.0 % 0.0-9. 0 Not Available [facility] (Lab) [address] [facility], [place], [address], 03/09/2021 18:44:12 03/04/20 21 03/04/2021 CBC W/DIF F basophils 1.0 % 0.0-2. 0 Not Available [facility] (Lab) [address] [facility], [place], [address], 03/09/2021 18:44:12 03/04/20 21 03/04/2021 CBC W/DIF F immature granulocytes 0.0 % no define d refere nce range Not Available [facility] (Lab) [address] [facility], [place], [address], 03/09/2021 18:44:12 03/04/20 21 03/04/2021 CBC W/DIF F absolute neutrophils 3.9 10'3/ uL 1.1-6. 0 Not Available [facility] (Lab) [address] [facility], [place], [address], 03/09/2021 18:44:12 03/04/20 21 03/04/2021 CBC W/DIF F absolute lymphocytes 2.5 10'3/ uL 0.7-3. 4 Not Available [facility] (Lab) [address] [facility], [place], [address], 03/09/2021 18:44:12 03/04/20 21 03/04/2021 CBC W/DIF F absolute monocytes 0.5 10'3/ uL 0.3-1. 0 Not Available [facility] (Lab) [address] [place], [address], 03/09/2021 18:44:12 03/04/20 21 03/04/2021 CBC W/DIF F absolute eosinophils 0.1 10'3/ uL 0.0-0. 6 Not Available [facility] (Lab) [address] , [place], [address], 03/09/2021 18:44:12 03/04/20 21 03/04/2021 CBC W/DIF F absolute basophils 0.1 10'3/ uL 0.0-0. 1 Not Available [facility] (Lab) [address], [place], [address], 03/09/2021 18:44:12 03/04/20 21 03/04/2021 CBC W/DIF F absolute immature granulocytes 0.00 10'3/ uL 0.00-0 .10 2020 12:04 AM: P indic ates parti al resul ts on a panel have been relea sed. Addit ional resul ts will follo w. 2020 12:04 AM: This resul t has been final verif ied. No addit ional or yee ed resul ts are expec mitch. Not Available [facility] (Lab) [address], [place], [address], 03/09/2021 18:44:12 03/04/20 21 03/04/2021 DHEA SULFA TE DHEA-sulfate 264 ug/dL Femal e Range s Age(y ) Range (ug/d L) 10-15 34-28 0 15-20 65-36 8 20-25 148-4 07 25-35 99-34 0 35-45 61-33 7 45-55 35-25 6 55-65 19-20 5 65-75 9-246 > 75 12-15 4 Not Available [facility] (Lab) [address] , [place], [address], 03/09/2021 18:44:13 03/04/20 21 03/04/2021 TSH, REFLE X FREE T4 TSH 1.37 uIU/m L 0.30-5 .33 Not Available [facility] (Lab) [address], [place], [address], 03/09/2021 18:44:14 03/04/20 21 03/04/2021 LIPID PANEL ,AMA (LDL- CALC) total cholesterol 219 mg/dL 0-199 high Not Available [facility] (Lab) [address] [place], [address], 03/09/2021 18:44:14 03/04/20 21 03/04/2021 LIPID PANEL ,AMA (LDL- CALC) triglyceride s 114 mg/dL 0.00-1 50.00 NCEP Refer ence Value s for Trigl yceri trixie: Vi l: <150 mg/dL Borde rline High: 150 - 199 mg/dL High: 200 - 499 mg/dL Very High: >/= 500 mg/dL Not Available [facility] (Lab) [address] [facility], [place], [address], 03/09/2021 18:44:14 03/04/20 21 03/04/2021 LIPID PANEL ,AMA (LDL- CALC) HDL cholesterol 49 mg/dL >40 Not Available [facility] (Lab) [address] [place], [address], 03/09/2021 18:44:14 03/04/20 21 03/04/2021 LIPID PANEL ,AMA (LDL- CALC) LDL cholesterol 147 mg/dL 0-99 high Cutof f value s recom vee d by the eBnny nal Priyanka stero l Educa tion Progr am: JENNYFER ABLE: Priyanka stero l <200 mg/dL LDL <100 mg/dL BORDE RLINE : Priyanka stero l 200-2 39 mg/dL LDL 101-1 59 mg/dL HIGHE R RISK: Priyanka stero l >240 mg/dL LDL >160 mg/dL , HDL <40 mg/dL Not Available [facility] (Lab) [address] [place], [address], 03/09/2021 18:44:14 03/04/20 21 03/04/2021 LIPID PANEL ,AMA (LDL- CALC) non-HDL cholesterol 170 mg/dL no refere nce range A reaso nable goal for non-H DL priyanka stero l is one that is 30 mg/dL highe r than the LDL priyanka stero l goal. Not Available [facility] (Lab) [address] [facility], [place], [address], 03/09/2021 18:44:14 03/04/20 21 03/04/2021 LIPID PANEL ,AMA (LDL- CALC) chol/HDL ratio 4.5 . 0.0-5. 0 Not Available [facility] (Lab) [address] [facility], [place], [address], 03/09/2021 18:44:14 03/04/20 21 03/04/2021 CMP(C OMPRE HENSI VE METAB OLIC PANEL ) sodium 137 mmol/ L 133-14 6 Not Available [facility] (Lab) [address] [facility], [place], [address], 03/09/2021 18:44:14 03/04/20 21 03/04/2021 CMP(C OMPRE HENSI VE METAB OLIC PANEL ) potassium 4.2 mmol/ L 3.5-5. 1 Not Available [facility] (Lab) [address] [facility], [place], [address], 03/09/2021 18:44:14 03/04/20 21 03/04/2021 CMP(C OMPRE HENSI VE METAB OLIC PANEL ) chloride 105 mmol/ L 98-107 Not Available [facility] (Lab) [address] [facility], [place], [address], 03/09/2021 18:44:14 03/04/20 21 03/04/2021 CMP(C OMPRE HENSI VE METAB OLIC PANEL ) carbon dioxide 24 mmol/ L 21-31 Not Available [facility] (Lab) [address] [facility], [place], [address], 03/09/2021 18:44:14 03/04/20 21 03/04/2021 CMP(C OMPRE HENSI VE METAB OLIC PANEL ) anion gap 8 mmol/ L 4-13 Not Available [facility] (Lab) [address] [facility], [place], [address], 03/09/2021 18:44:14 03/04/20 21 03/04/2021 CMP(C OMPRE HENSI VE METAB OLIC PANEL ) blood urea nitrogen 12 mg/dL 7-25 Not Available [facility] (Lab) [address] [facility], [place], [address], 03/09/2021 18:44:14 03/04/20 21 03/04/2021 CMP(C OMPRE HENSI VE METAB OLIC PANEL ) creatinine 0.70 mg/dL 0.60-1 .30 Not Available [facility] (Lab) [address] [facility], [place], [address], 03/09/2021 18:44:14 03/04/20 21 03/04/2021 CMP(C OMPRE HENSI VE METAB OLIC PANEL ) GFR () 123 mL/mi n/1.7 3_m2 60-300 Not Available [facility] (Lab) [address] [facility], [place], [address], 03/09/2021 18:44:14 03/04/20 21 03/04/2021 CMP(C OMPRE HENSI VE METAB OLIC PANEL ) GFR (others) 101 mL/mi n/1.7 3_m2 60-300 Not Available [facility] (Lab) [address] [facility], [place], [address], 03/09/2021 18:44:14 03/04/20 21 03/04/2021 CMP(C OMPRE HENSI VE METAB OLIC PANEL ) calcium 9.5 mg/dL 8.3-10 .5 Not Available [facility] (Lab) [address] [facility], [place], [address], 03/09/2021 18:44:14 03/04/20 21 03/04/2021 CMP(C OMPRE HENSI VE METAB OLIC PANEL ) glucose 81 mg/dL 70-100 Not Available [facility] (Lab) [address] [facility], [place], [address], 03/09/2021 18:44:14 03/04/20 21 03/04/2021 CMP(C OMPRE HENSI VE METAB OLIC PANEL ) protein, total 6.7 g/dL 6.4-8. 3 Not Available [facility] (Lab) [address] [facility], [place], [address], 03/09/2021 18:44:14 03/04/20 21 03/04/2021 CMP(C OMPRE HENSI VE METAB OLIC PANEL ) albumin 4.3 g/dL 3.5-5. 0 Not Available [facility] (Lab) [address] [facility], [place], [address], 03/09/2021 18:44:14 03/04/20 21 03/04/2021 CMP(C OMPRE HENSI VE METAB OLIC PANEL ) ALT 15 units /L 9-43 Not Available [facility] (Lab) [address] [facility], [place], [address], 03/09/2021 18:44:14 03/04/20 21 03/04/2021 CMP(C OMPRE HENSI VE METAB OLIC PANEL ) alkaline phosphatase 47 units /L 34-104 Not Available [facility] (Lab) [address] [facility], [place], [address], 03/09/2021 18:44:14 03/04/20 21 03/04/2021 CMP(C OMPRE HENSI VE METAB OLIC PANEL ) AST 14 units /L 13-39 Not Available [facility] (Lab) [address] [facility], [place], [address], 03/09/2021 18:44:14 03/04/20 21 03/04/2021 CMP(C OMPRE HENSI VE METAB OLIC PANEL ) bilirubin, total 0.6 mg/dL 0.2-1. 2 GFR(A f[place] n Ameri can) is repor mitch as 21% great er than GFR(O ther) . The use of race in kidne y funct ion estim ating equat ions is no longe r recom vee d and may resul t in overe stima tion. In the near futur e an appro ach that disre gards race will be imple mentgonzales piña. Not Available [facility] (Lab) [address] [facility], [place], [address], 03/09/2021 18:44:14 03/04/20 21 03/04/2021 VITAM IN B12 / FOLAT E PANEL vitamin B12 275 pg/mL 180-91 4 Vi l Range : 180-9 14 pg/mL . Indet ermin ate Range : 145-1 80 pg/mL . Defic ient Range : <=145 pg/mL . Not Available [facility] (Lab) [address] [facility], [place], [address], 03/09/2021 18:44:15 03/04/2003/04/2021 VITAM IN B12 / FOLAT E PANEL folate, serum 16.4 NG/mL 6.0-20 .0 Not Available [facility] (Lab) [address] [facility], [place], [address], 03/09/2021 18:44:15 03/04/20 21 03/04/2021 VITAM IN D, 25-OH (TOTA L D2/D3 ) vitamin D, 25-hydroxy, total 27.1 NG/mL 30-80 low NOTE: Defic iency : <20 ng/mL Insuf ficie ncy: 20-29 ng/mL Optim um Level : 30-80 ng/mL Possi ble Toxic ity: >80 ng/mL Most patie nts with toxic ity have level s >150 ng/mL . Not Available [facility] (Lab) [address] [facility], [place], [address], 03/09/2021 18:44:15 03/04/2003/04/2021 FSH / LH FSH 3.5 mIU/m L This assay was perfo rmed using [employer] ratio n reage nts and test kits. Value s obtai ivonne with other assay metho ds or kits canno t be used inter [facility] . Femal es Folli cular : 3.5-1 2.5 mIU/m L Ovula tion: 4.7-2 1.5 mIU/m L Lutea l: 1.7-7 .7 mIU/m L Postm enopa use: 25.8- 134.8 mIU/m L Not Available [facility] (Lab) [address] [place], [address], 03/09/2021 18:44:16 03/04/2003/04/2021 FSH / LH LH 4.3 mIU/m L This assay was perfo rmed using [employer] n reage nts and test kits. Value s obtai ivonne with other assay metho ds or kits canno t be used [facility] . Femal es Mid-F ollic ular: 2.4-1 2.6 mIU/m L Mid-C ycle: 14.0- 95.6 mIU/m L Mid-L uteal : 1.0-1 1.4 mIU/m L Postm enopa use: 7.7-5 8.5 mIU/m L Not Available [facility] (Lab) [address] [place], [address], 03/09/2021 18:44:16 03/04/2003/04/2021 PROLA CTIN prolactin, total 8.91 NG/mL 4.79-2 3.30 This assay was perfo rmed using [employer] n reage nts and test kits. Value s obtai ivonne with other assay metho ds or kits canno t be used [facility] . Not Available [facility] (Lab) [address] [place], [address], 03/09/2021 18:44:16 03/04/2003/04/2021 HEMOG LOBIN A1C hemoglobin A1C 5.6 % 0-5.6 The Ameri can Diabe quan Assoc iatio n recom mends that a prima ry goal of thera py shoul d be a HBA1C of < 7% and that physi cians shoul d reeva luate the treat ment regim en in patie nts with HBA1C value s consi stent ly > 8%. <5.7% Vi l 5.7 - 6.4% Incre ased risk for diabe quan >=6.5 % Diagn ostic of diabe quan <7.0% Goal of thera py >8.0% Actio n sugge sted Not Available [facility] (Lab) [address] [facility], [place], [address], 03/09/2021 18:44:17 03/04/2003/04/2021 TESTO STERO NE, FREE( DIALY SIS) AND TOTAL (LC/M S/MS) testosterone , total 38 NG/dL 2-45 For addit ional infor kerri rodrigues e refer to http: //[facility] memo stewart.que stdia gnost ics.c om/fa q/Tot al Testo stero neLCM SMS (This link is being provi ded for infor iván nal/e ducat ional purpo ses only. ) This test was devel oped and its oneil tical perfo rmanc e jarad cteri stics have been deter mined by [employer] [facility]. It has not been clear ed or appro jonathan by the FDA. This assay has been valid ated pursu ant to the CLIA regul ation s and is used for clini ed purpo ses. Not Available [facility] (Lab) [address] [facility], [place], [address], 03/09/2021 18:44:17 03/04/2003/04/2021 TESTO STERO NE, FREE( DIALY SIS) AND TOTAL (LC/M S/MS) testosterone , free 4.2 pg/mL 0.1-6. 4 This test was devel oped and its oneil tical perfo rmanc e jarad cteri stics have been deter mined by [facility]. It has not been clear ed or appro jonathan by the FDA. This assay has been valid ated pursu ant to the CLIA regul ation s and is used for clini ed purpo ses. Perfo rming Organ izati on Infor matio n: Site ID: [id number] Name: [facility] Katiuska nevarez s-Stevie abner [place] Addre ss: [id number] [place] [address] Direc tor: Catarina ventura M.D. Not Available [facility] (Lab) [address], [place], [address], 03/09/2021 18:44:17 02/16/20 21 02/15/2021 US, edd whitfield terheather No observ ation record ed. [email or web address] [address] [address], [place], [address], 02/25/2021 11:04:11 03/04/20 21 03/04/2021 US, pelvi s No observ ation record ed. [email or web address] [place] [address], [place], [address], 03/04/2021 15:12:34 03/04/20 21 03/04/2021 US, trans vagin al No observ ation record ed. [email or web address] [place] [address] [facility] [address], [place], [address], 03/04/2021 15:12:47 05/04/20 21 05/04/2021 US, trans vagin al No observ ation record ed. [email or web address] [place] [address], [place], [address], 05/04/2021 12:59:24 05/04/20 21 05/04/2021 US, trans vagin al No observ ation record ed. [email or web address] [address], [place], [address], 05/07/2021 14:00:27 Result Notes None recorded. Problems Name Problem SNOMED Code Status Onset Date Resolution Date Notes Provider Name and Address Organization Details Recorded Time Blood leukocyt e number above referenc e range [id number] Completed 201807/27/2020 Elevated white blood cell count, unspecif ied;Alejo rded Elsewher e: No [facility]: E[facility] Piece Work Checker stevie: N Kyle ce ID: [id number] [email or web address] lable Time: 04:00:00 PM Melani zhang [facility] 14:06:29 Pregnanc y-induce d hyperten jatin Completed 201807/27/2020 Gestatio nal htn w/o signific ant proteinu minerva, third trimeste r;Record ed Elsewher e: No Locat ion: [facility] S ource: EHR Piece Work Checker stevie: N Kyle ce ID: [id number] [email or web address] lable Time: 08:00:00 AM Melani zhang [facility] 14:06:57 Normal pregnanc y in multigra bertha [id number] Completed 201807/27/2020 Encounte r for suprvsn of normal pregnanc y, third trimeste r;Record ed Elsewher e: No Locat ion: [facility] S ource: EHR Piece Work Checker stevie: N Kyle ce ID: [id number] [email or web address] lable Time: 08:30:00 AM Melani zhang [facility] 14:06:54 Gestatio n period, 36 weeks [id number] Completed 201807/27/2020 36 weeks gestatio n of pregnanc y;Record ed Elsewher e: No Locat ion: [facility] S ource: EHR Piece Work Checker stevie: N Lolati ce ID: [id number] [email or web address] lable Time: 08:00:00 AM Melani zhang [facility] 14:06:24 Antenata l screenin g Completed 201807/27/2020 Encounte r for other antenata l screenin g follow-u p;Record ed Elsewher e: No Locat ion: Brenda rolon [facility] S ource: EHR Piece Work Checker stevie: N Lolati ce ID: [id number] [email or web address] lable Time: 09:15:00 AM Melani zhang [facility] 14:06:17 Rubella screenin g status [id number] Completed 201807/27/2020 Encounte r for antenata l screenin g, unspecif ied;Alejo rded Elsewher e: No Locat ion: Brenda rolon [facility] S ource: EHR Piece Work Checker stevie: N Lolati ce ID: [id number] Isauro lable Time: 05:00:00 PM Melani zhang [facility] 14:06:58 Urinary tract infectio us disease [id number] Completed 201807/27/2020 UTI;Alejo rded Elsewher e: No Locat ion: Brenda rolon [facility] S ource: EHR Piece Work Checker stevie: N Lolati ce ID: [id number] Isauro lable Time: 04:00:00 PM Melani zhang [facility] 14:07:04 Elevated blood-pr essure reading without diagnosi s of hyperten jatin [id number] Completed 201907/27/2020 Elevated blood-pr essure reading w/o diagnosi s of hyperten jatin;Rec orded Elsewher e: No Locat ion: Brenda rolon [facility] S ource: EHR Piece Work Checker stevie: N Lolati ce ID: [id number] Isauro lable Time: 08:30:00 AM Melani zhang [facility] 14:06:20 Lochia finding Completed 201907/27/2020 Encounte r for routine postpart um follow-u p;Record ed Elsewher e: No Locat ion: [facility]lon [facility] [facility] S ource: EHR Piece Work Checker stevie: N Kyle ce ID: 0001 Isauro lable Time: 08:30:00 AM Melani zhang [facility] 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 14:07:01 Human papillom avirus deoxyrib onucleic acid detected , high risk on cervical specimen [id number] Completed 201807/27/2020 Cervical high risk HPV DNA test positive ;Recorde d Elsewher e: No [facility]: EHR Piece Work Checker stevie: N Kyle ce ID: 0001 Isauro lable Time: 05:00:00 PM Melani zhang [facility] 1 14:06:27 Antenata l screenin g for malforma tion Completed 201807/27/2020 Encounte r for antenata l screenin g for malforma tions;Re corded Elsewher e: No Locat ion: [facility] S ource: EHR Piece Work Checker stevie: N Kyle ce ID: 0001 Isauro lable Time: 10:15:00 AM Melani zhang [facility] 1 14:06:19 Gestatio n period, 35 weeks 48135063 Completed 201807/27/2020 35 weeks gestatio n of pregnanc y;Record ed Elsewher e: No Locat ion: [facility] S ource: EHR Piece Work Checker stevie: N Kyle ce ID: 0001 Isauro lable Time: 09:00:00 AM Melani zhang [facility] 14:06:22 Lacerati on of female perineum Completed 201807/27/2020 First degree perineal lacerati on during delivery ;Practic e ID: 0001 Melani zhang, [facility] 14:06:32 Pregnanc y detectio n examinat ion Completed 201807/27/2020 Encounte r for pregnanc y test, result positive ;Practic e ID: 0001 Melani zhang, [facility] 14:06:55 Gestatio n period, 37 weeks [id number] Completed 201807/27/2020 37 weeks gestatio n of pregnanc y;Practi ce ID: 0001 Melani zhang [facility] 14:06:25 Single live [id number] Completed 201807/27/2020 Single live ;Pr actice ID: 0001 Melani zhang, [facility] 14:07:00 Term pregnanc y delivere d [id number] Completed 201807/27/2020 Encounte r for full-ter m uncompli cated delivery ;Practic e ID: 0001 Melani zhang, [facility] 14:07:02 Problem Notes None recorded. Procedures Surgical History Date Name Laterality Status Provider Name and Address Organization Details Recorded Time 03/23/2023 Date of Last Pap Smear completed Shonda Cabezas [facility] 03/23/2023 11:06:34 1994 graft of skin to skin completed Shonda Cabezas [facility] 02/26/2021 18:36:42 Imaging Results Imaging Date Name Status LastModified by Organization Details LastModified Time 02/15/2021 US, breast, unilateral completed [email or web address] [facility] [address] [facility], [place], [address], 02/25/2021 11:04:11 03/04/2021 US, pelvis completed [email or web address] [facility] [address], [place], [address], 03/04/2021 15:12:34 03/04/2021 US, transvaginal completed [email or web address] [facility] [address], [place], [address], 03/04/2021 15:12:47 05/04/2021 US, transvaginal completed [email or web address] [facility] [address], [place], [address], 05/04/2021 12:59:24 05/04/2021 US, transvaginal completed [address], [facility], [place], [address], 05/07/2021 14:00:27 Procedure Notes None recorded. Medical Equipment None Reported. Allergies Allergen ID Allergen Name Allergen Category Reaction Reaction Severity Criticality Documentation Date Start Date Code Code System Note Provider Name and Address Organization Details Recorded Time 00389 amoxicill in medicatio n Not available Not available Not available 07/27/2020 723 RxNorm Melani zhang [facility] 14:12:13 99902 potassium medicatio n Not available Not available Not available 07/27/2020 8588 RxNorm Melani zhang [facility] 14:12:20 Medications Name Sig Start Date Stop Date Status Note LastModified by Organization Details LastModified Time lidocaine /antacid/ wal-dryl 03/23 completed Not Available Not Available Not Available clindamyc in HCl 300 mg capsule Take 1 capsule twice a day by oral route for 7 days. 03/23 completed Not Available Not Available Not Available azithromy maximo 250 mg tablet TAKE 2 TABLETS BY MOUTH FOR 1 DAY THEN TAKE 1 TABLET BY MOUTH DAILY FOR 4 DAYS 03/23 completed Not Available Not Available Not Available Lidocaine Viscous 2 % mucosal solution 03/23 completed Not Available Not Available Not Available ondansetr on HCl 4 mg tablet TAKE 1 TABLET BY MOUTH EVERY 6 HOURS 03/23 completed Not Available Not Available Not Available hydroxyzi ne HCl 50 mg tablet TAKE 1 TABLET BY MOUTH THREE TIMES DAILY NEEDED FOR ANXIETY AND SLEEP active Not Available Not Available No t Available phentermi ne 37.5 mg tablet 05/01 completed Not Available Not Available Not Available prochlorp erazine maleate 10 mg tablet 03/23 completed Not Available Not Available Not Available sulfameth oxazole 800 mg-trimet hoprim 160 mg tablet TAKE 1 TABLET BY MOUTH EVERY 12 HOURS FOR 7 DAYS 03/23 completed Not Available Not Available Not Available phenazopy ridine 100 mg tablet Take 1 tablet 3 times a day by oral route as needed for 7 days. 03/23 completed Not Available Not Available Not Available fluoxetin e 20 mg tablet TAKE 1 TABLET BY MOUTH DAILY 05/01 completed Not Available Not Available Not Available polymyxin B sulfate 10,000 unit-trim ethoprim 1 mg/mL eye drops 03/23 completed Not Available Not Available Not Available fluoxetin e 10 mg capsule 05/01 completed Not Available Not Available Not Available omeprazol e 20 mg capsule,d elayed release 05/01 completed Not Available Not Available Not Available Pepcid 20 mg tablet take 1 tablet by oral route 2 times every day 07/27 completed Prescrib ed Elsewher e: Yes Loca tion: [facility] M odify By: [email or web address] Encount er DateTime : 02/22/20 10:00:00 AM Not Available Not Available Not Available cefdinir 300 mg capsule TAKE 1 CAPSULE BY MOUTH EVERY 12 HOURS 03/23 completed Not Available Not Available Not Available fluoxetin e 20 mg capsule active Not Available Not Available Not Available metformin ER 500 mg tablet,ex tended release 24 hr TAKE 1 TABLET BY MOUTH DAILY active Not Available Not Available No t Available Dalia 0.35 mg tablet take 1 tablet by oral route every day 01/27/ 2020 02/22 /2021 completed Prescrib ed Elsewher e: No Locat ion: [facility] odify By: [email or web address] pappas DateTime : 07/01/19 12:03:25 PM Not Available Not Available Not Available bupropion HCl XL 150 mg 24 hr tablet, extended release 03/23 completed Not Available Not Available Not Available nitrofura ntoin monohydra te/macroc rystals 100 mg capsule TAKE 1 CAPSULE BY MOUTH EVERY 12 HOURS FOR 5 DAYS TAKE WITH FOOD 05/01 completed Not Available Not Available Not Available Lo Loestrin Fe 1 mg-10 mcg (24)/10 mcg (2) tablet Take 1 tablet every day by oral route. 05/07 completed Lot [id number], Exp 05/2022 Not Available Not Available Not Available Fioricet 50 mg-300 mg-40 mg capsule take 1 - 2 capsule by oral route every 4 hours as needed not to exceed 6 capsules per 24hrs 02/21 completed Prescrib ed Elsewher e: No Locat ion: [facility] odify By: [email or web address] Encount er DateTime : 01/08/20 01:26:10 PM Not Available Not Available Not Available 28 mg-800 mcg tablet 07/27 completed Prescrib ed Elsewher e: Yes Loca tion: [facility] odify By: [email or web address] Encount er DateTime : 02/22/20 10:00:00 AM Not Available Not Available Not Available Vitals Date Recorded Body height Body mass index (BMI) Body weight Provider Name and Address Organization Details Last Updated DateTime 03/13/2021 166.37 cm 39.5 kg/m2 670564.76 g Jenny Galan [facility] 03/13/2021 12:39:39 Date Recorded Systolic blood pressure Diastolic blood pressure Provider Name and Address Organization Details Last Updated DateTime 03/13/2021 120 mm[Hg] 79 mm[Hg] Florecita [facility] [address], [place], [address], [facility] 03/13/2021 13:12:52 Date Recorded Body height Body mass index (BMI) Body weight Systolic blood pressure Diastolic blood pressure Provider Name and Address Organization Details Last Updated DateTime 05/07/2021 166.37 cm 39.7 kg/m2 104587.3 5 g 129 mm[Hg] 79 mm[Hg] Timmy Lopez [facility] 1 09:53:07 Date Recorded Body height Body mass index (BMI) Body weight Systolic blood pressure Diastolic blood pressure Provider Name and Address Organization Details Last Updated DateTime 03/23/2023 166.37 cm 34.1 kg/m2 07385.21 g 132 mm[Hg] 78 mm[Hg] Shonda Jocelynn [facility] 3 11:04:13 Date Recorded Body height Body mass index (BMI) Body weight Systolic blood pressure Diastolic blood pressure Provider Name and Address Organization Details Last Updated DateTime 05/01/2024 166.37 cm 33.6 kg/m2 08982.44 g 124 mm[Hg] 84 mm[Hg] Yamilet Simeon [facility] 4 10:18:07 Social History Question Answer Notes LastModified by Organizat ion Details LastModified Time Tobacco Smoking Status Never [facility]oker [facility] 05/04/2021 09:23:05 Do You Have An Advance Directive? No Information n ot available 05/01/2024 What Is Your Level Of Alcohol Consumption? Occasional [email or web address] Information not available 02/27/2021 If You Are , What Was Your Level Of Alcohol Consumption Prior To ? None [email or web address] Information not available 05/04/2021 Are You Blind Or Do You Have Difficulty Seeing? No Information n ot available 02/27/2021 What Is Your Level Of Caffeine Consumption? Moderate Information not available 05/01/2024 In The 14 Days Before Symptom Onset, Have You Had Close Contact With A Laboratory-confirm ed COVID-19 While That Case Was Ill? No [email or web address] Information n ot available 02/27/2021 In The 14 Days Before Symptom Onset, Have You Had Close Contact With A Person Who Is Under Investigation For COVID-19 While That Person Was Ill? No [email or web address] Information not available 02/27/2021 Have You Been To An Area Known To Be High Risk For COVID-19? No [email or web address] Information not available 02/27/2021 Are You Deaf Or Do You Have Serious Difficulty Hearing? No [email or web address] Information not available 02/27/2021 What Type Of Diet Are You Following? REGULAR Information n ot available 02/27/2021 What Is The Highest Grade Or Level Of School You Have Completed Or The Highest Degree You Have Received? [id number] Information not available 05/01/2024 Are There Any Guns Present In Your Home? Yes Information not available 05/01/2024 Do You Use Protection During Sex? No Information not available 05/01/2024 Do You Use Your Seat Belt Or Car Seat Routinely? Yes [email or web address] Information not available 02/27/2021 Do You Have Smoke And Carbon Monoxide Detectors In Your Home? Yes [email or web address] Information not available 02/27/2021 How Much Tobacco Do You Smoke? No Information not available 05/01/2024 Do You Feel Stressed (tense, Restless, Nervous, Or Anxious, Or Unable To Sleep At Night)? [id number] [email or web address] Information not available 02/27/2021 Do You Use Any Illicit Or Recreational Drugs? No [email or web address] Information not available 02/27/2021 Do You Use Sunscreen Routinely? Yes [email or web address] Information not available 02/27/2021 Has Tobacco Cessation Counseling Been Provided? No [email or web address] Information not available 05/04/2021 Have You Used IV Drugs? No Information not available 05/01/2024 Do You Or Have You Ever Used Any Other Forms Of Tobacco Or Nicotine? No [email or web address] Information not available 05/04/2021 Sex: Unknown Functional Status Question Answer Note LastModified by Organizat ion Details LastModified Time Do you have difficulty walking or climbing stairs? No [email or web address] Information not available 03/23/2023 Are you able to walk? YESWOREST [email or web address] Information not available 02/27/2021 Are you able to care for yourself? Yes [email or web address] Information not available 03/23/2023 Do you have difficulty dressing or bathing? No [email or web address] Information not available 03/23/2023 What is your exercise level? Occasional [email or web address] Information not available 02/27/2021 Mental Status None recorded. Family History Relationship Description Onset Age of this Age Resolved Age Notes LastModified by Organization Details LastModified Time Maternal Grandmother Diabetes mellitus [email or web address] Not available 2020 14:14:39 Father Depressive disorder Not available 02/26 18:36:15 Medical History Condition Response Allergies (Food, seasonal, environmental ) N Other N Breast Cancer N Drug/Latex Allergies/Reactions N Blood Transfusion N Dermatologic Disorders N Lung Disease N Defects or Inherited Disease N Breast Problem Y Gestational Diabetes N Hematologic disorders N Anesthesia Complications N History of STI Y Deep Vein Thrombosis N Polycystic ovary syndrome N Anxiety Disorder Y Autoimmune disease N Arthritis N Infertility N Polyps N Acid Reflux (GERD) Y History of abnormal pap N Cancer N Stroke N Varicosities N Neurologic/Epilepsy N Endometriosis N High Cholesterol N Headaches N Fibromyalgia N Kidney Disease N Heart Problems N Kidney or Bladder Problems N Thyroid Problems N GI Problems N Eating Disorder N Anemia N Art (IVF or FET) N Psychiatric Illness N Ovarian Cancer N Diabetes Y Pulmonary (TB, Asthma) N Hepatitis/Liver Disease N No Past Medical History N Eczema N Urinary Tract Infection N Abuse/Domestic Violence N Asthma N Trauma/Violence N Depression/ depression Y Heart Disease N Pre-Eclampsia N Hypertension Y Osteoporosis N Thrombophilias N Gynecological History Statement/Question Response Date of Last Mammogram Flow Heavy Date of LMP 04/13/2024 N Was last menstrual period normal N STIs/STDs Y Abnormal Pap Y On BCP's at Conception? N HPV Vaccine N Duration of Flow (days) 3 Current Control Method Partner Vas ectomy Age at First Child 19 Are cycles usually normal Y Frequency of Cycle (Q days) 27 Sexually Active? Y Menses Monthly Y Age of first menstrual cycle 8 Date of Last Pap Smear 03/23/2023 Sexual Problems? N LMP Approximate N 11/02/2018 Obstetrics History GPAL:G 2 P 2 0 0 2 Type Value Full Term 2 Living 2 Total 2 Past Encounters Encounter ID Performer Location Encounter Start Date Encounter Closed Date Diagnosis/Indication Diagnosis SNOMED-CT Code Diagnosis ICD10 Code Diagnosis Note [id number] Vita Wilde [facility] [address] [address] 07/28/2020 12:44:29 07/28/2020 16:12:21 Galactorrhea not associated with childbirth 24062470 N64.3 Pt weaned her daughter 6 months ago and just recently started lactating again. Her breasts did feel slightly engourged. Over the last few days that has decreased with the use of bra and avoiding stimulatio n. Will check labs today. [id number] [facility] [address],[place] [address] 09/01/2020 09:51:53 09/02/2020 10:50:51 Galactorrhea not associated with childbirth 21319984 N64.3 Labs normal. Tenderness resolved and milk has significan tly decreased. Discussed s/s to watch for. It is not uncommon to have occasional milk discharge for up to 1 year after weaning. If any increase in discharge, pain, or breast changes she will call us hodan. [id number] Vita Ramírezmaulik [facility] [address],[place] [address] 02/09/2021 10:51:21 02/14/2021 16:00:40 Galactorrhea not associated with childbirth 34860321 N64.3 Imaging and labs. Once received will consider breast specialist . [id number] Florecita [facility] [address],[place] [address] 02/27/2021 10:07:29 02/27/2021 12:03:15 Gynecologic examination 92088586 Z01.419 Take Calcium with Vitamin D 1200mg daily if not receiving in daily diet. It is strongly advised to have an annual flu shot and up can obtain at most pharmacies . If you have not had a TDap shot in the last 10 years you should obtain one as well. Discussed with patient & provided with informatio n regarding Gardisil vaccine to prevent the 4 strains for HPV that cause cervical cancer if under age 26. Encourage safe sexual practices, to use condoms and limit partners if not already in a monogamous relationsh ip. Do monthly self breast exams. Have mammogram yearly or every other year depending on family history. BRCA testing is now available for patients with strong genetic history of female cancer. If interested contact the office. Engage in daily exercise of low impact aerobic exercise 45-60 minutes 4-5 times weekly. Avoid tobacco and illicit drugs as well as using moderation with alcohol intake less than 1-2 8 oz beverages daily. This lifestyle behavior pattern will lead to less health conditions and longer life span. If BMI greater than 25 weight watchers or dietary consult advised. Patient received above instructio ns, and questions have been answered. If you have any questions please call or respond to this email. Patient was made aware of the patient portal and may obtain a paper copy of today's plan if desired.Jorge Alberto quiroga sentSTLukas sentBC: Vasectomy Adult heal th examination 166794251 Z00.00 Fatigue/Hu ngry/thirs ty/irregul ar cycles/dif ficulty losing weight after 6mos on calorie restricted diet plus exercise regimen. Irregular periods 454132 07 N92.6 Update US & labs Female hirsutism 2450064 9 L68.0 [id number] [facility] [address] [address] 03/04/2021 11:28:21 03/04/2021 12:33:33 Irregular periods 86693794 N92.6 L68.0 N94.6 N94.10 [id number] Flore[facility] [place] , [facility] [address] [address] 03/13/2021 12:29:35 03/15/2021 10:59:09 Cyst of ovary 51827336 N83.209 TVUS reviewedR/ P US x 6-8wksWill complete 8wks of lo loestrin FE as wellIbupro fen/tyleno l prn Patient is to contact office or go to nearest ED/Urgent care if fever >/= 100.1, pain, excessive bleeding, unusual drainage or swelling in area of concern; or experienci ng worsening sx's or new onset of concerning sx's. Understand ing verbalized . All questions answered to patient satisfacti on. Wants to lose weight 170 490834 Z71.3 Having a difficult time losing weight.Curt ts more guidance.R efer to dieticianE ncouraged adding more resistance training to work regimen.Ga ve rec's of how to do this.Couns eled on fitness/tr acking apps [id number] Juliette Villar [facility] [address],[place] [address] 05/04/2021 09:22:50 05/04/2021 10:47:03 Cyst of ovary 24048687 N83.209 [id number] [facility] [address],[place] [address] 05/07/2021 09:41:52 05/07/2021 10:37:02 Cyst of ovary 02158197 N83.209 TVUS today is wnlSmall amount of free fluid could indicate a resolving cyst & can be irritating to the entire pelvic area.We agreed to do a short course abx to help decrease inflammati on.Prefers not to be on BC--sensit bi to estrogen (caused headaches) .-d eclined std screenIf not feeling better in a week contact office to discuss. Time spent in visit is a total of 15 mins with at least 50% of visit consisting of counseling and review of plan of care.Addit ional precaution oneil measures were taken to minimize potential exposure to the Covid-19 virus during this patient s visit, including available hand auditing manager upon arrive, temperatur e check and being asked a series of screening questions. All staff wore face coverings during this encounter, as well as provided additional cleaning and sanitizing of all surfaces, including counter-to ps, pens, chairs, door handles, light switches, etc, prior to and following the patient s visit. Patient is to contact office or go to nearest ED/Urgent care if fever >/= 100.1, pain, excessive bleeding, unusual drainage or swelling in area of concern; or experienci ng worsening sx's or new onset of concerning sx's. Understand ing verbalized . All questions answered to patient satisfacti on. [id number] JESSICA Cash [facility] [address],[place] [address] 03/23/2023 10:44:56 03/23/2023 15:25:09 Gynecologic examination 51126559 Z11.3 WWEBC - partner with vasectomyp ap updatedSTI testing added to papblood STI testing declinedUT D with PCP for routine labsRTC in 1 year or sooner if needed Take Calcium with Vitamin D daily if not receiving in daily diet.It is strongly advised to have an annual flu shot and up can obtain at most pharmacies . If you have not had a TDap shot in the last 10 years you should obtain one as well.Discu ssed with patient & provided with informatio n regarding Gardisil vaccine to prevent the 4 strains for HPV that cause cervical cancer if under age 26.Encoura ge safe sexual practices, to use condoms and limit partners if not already in a monogamous relationsh ip.Do monthly self breast exams.Enga ge in daily exercise of low impact aerobic exercise 45-60 minutes 4-5 times weekly. Avoid tobacco and illicit drugs as well as using moderation with alcohol intake less than 1-2 8 oz beverages daily. This lifestyle behavior pattern will lead to less health conditions and longer life span. If BMI greater than 25 weight watchers or dietary consult advised.Jorge Alberto andrade received above instructio ns, and questions have been answered. If you have any questions please call or respond to this email.Jamila gold was made aware of the patient portal and may obtain a paper copy of today's plan if desired. Venereal d isease screening 019172884 Z11.3 [id number] JESSICA Cash [facility] [address] [address] 05/01/2024 10:06:40 05/01/2024 12:09:17 Gynecologic examination 87941074 Z01.419 WWEBC - partner with vasectomyP ap - updatedSTI screen - declinedRo utine labs - UTD/PCPRTC in 1 yr or sooner if needed It is strongly advised to have an annual flu shot and up can obtain at most pharmacies . If you have not had a TDap shot in the last 10 years you should obtain one as well. Discussed with patient & provided with informatio n regarding the HPV vaccine if applicable . Encourage safe sexual practices, to use condoms and limit partners if not already in a monogamous relationsh ip. Do monthly self breast exams. BRCA testing is now available for patients with strong genetic history of female cancer. If interested contact the office. Engage in regular exercise. Avoid tobacco and illicit drugs. This lifestyle behavior pattern will lead to less health conditions and longer life span. If BMI greater than 25 dietary consult advised. Questions answered. Health Concerns Section Related Observation LastModified by Organization Detai ls LastModified Time None Recorded Concern Status LastModified by Organization Details LastModified Time None Recorded Advance Directives Directive N: Payers Encounter Date Sequence Insurance Name Policy Number Policy [place] Covered Member ID [place] Member ID Guarantor Name 03/13/2021 1 [place] [id number] Jayant Timmy Condry [id number] Liz Condry 05/04/2021 1 [place] [id number] Jayant Warner Condry [id number] Liz Condry 05/07/2021 1 [place] [id number] Jayant Warner Condry [id number] Liz Condry 03/23/2023 1 [place] [id number] Jayant Warner Condry [id number] Liz Condry 05/01/2024 1 [place] [id number] Jayant Warner Condry [id number] Liz Condry Notes Date Note Type Note Provider Name and Address Organization Details Recorded Time 03/13/2021 text/html Here today for T VUS & lab review. FRANCIS Ward [address], [place], [address], [facility] 03/13/2021 13:12:57 05/07/2021 text/html Here for TVUS Fo llow up for ovarian cyst.Went to ED a couple weeks ago for sharp pain in lower pelvic region.Had CT scan but only showed some free fluid otherwise wnlStill having some random crampy feelingTreated for UTI a week ago.Finished her menes a week ago.-declined need for std screenNeg vag d/c, itching, odor.Neg urinary frequency, urgency, dysuria.Neg GI sx's ELIAS Ward [address], [place], [address], [facility] 05/07/2021 10:26:40 03/23/2023 text/html Annual GYNReport ed bypatient.Menstrual cycle:Normal menses Urinary symptoms:No hematuria; No incontinence Vulva:No genital lesion Vagina:Normal vaginal discharge Breast:No breast pain; No breast lump; No nipple discharge Current Contraception:Satisf ied with current contraception; Partner had vasectomy Sexual complaints:No sexual complaints; No pain during intercourse; Normal libido Menopausal Symptoms:No menopausal symptoms; Normal vaginal lubrication Psychological symptoms:No depression; No anxiety; No PMDD Preventive measures:Encourage self breast examination; Encourage regular exercise; Encourage no tobacco use; Encourage regular mammograms starting age 40Notes:hx of ascus HPV (+) pap 2018last pap normal JESSICA Cash [address], [place], [address], [facility] 03/23/2023 15:20:11 05/01/2024 text/html Annual GYNReport ed bypatient.Menstrual cycle:Normal menses Urinary symptoms:No hematuria; No incontinence Vulva:No genital lesion Vagina:Normal vaginal discharge Breast:No breast pain; No breast lump; No nipple discharge Current Contraception:Satisf ied with current contraception; Partner had vasectomy Sexual complaints:No sexual complaints; No pain during intercourse; Normal libido Menopausal Symptoms:No menopausal symptoms; Normal vaginal lubrication Psychological symptoms:No depression; No anxiety; No PMDD Preventive measures:Encourage self breast examination; Encourage regular exercise; Encourage no tobacco use; Encourage regular mammograms starting age 40Notes:28yo wwelast pap 03/2023 : nilmh/o abnormal pap 2018BC - partner with vasectomy JESSICA Cash [address], [place], [address], [facility] 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 Status 02/27/20 21 1 CLOSED Fetus Data First Name Last Name Admitted to NICU Weight (g) Sex Living Outcome Pediatric Complications Fetus ID Race Codes Race Delivery Type 3288.54 2 F Full Term [id number] Vaginal Delivery Sam Calculation Initial Sam Date Initial Exam Date Initial Exam Provider Initial Ultrasound Date Last Menstrual Period Date Ultra Sound Weeks Gestation 0 Eighteen To Twenty Week Sam Update Ultra Sound Date Fundal Height At Umbil Quickening Date Ultra Sound Latest Weeks Gestation Final Sam Confirmed By Final Sam Confirmed Date Final Sam Date Ultra Sound Latest Days Gestation 0 0 Menstrual History Last Menstrual Date Menses Monthly On Bcp Conception Prior Menses Frequency Hcg Plus Date Menarche Onset Age Delivery Information Delivery Date Delivery Type Labor Anesthesia Weeks Gestation Incision Type Labor Labor Length Hrs Delivered By Post Complications Tubal Sterilization Discharge Date Comments 5 37 +GBS Discharge Information Feeding Method Contraceptive Method Maternal HG B and HCT Levels Ob Episode Information Episode Created Date Number of Fetuses Patient Bloodtype Patient rh Status Prepregnancy Weight lbs Domestic Partner Domestic Partner Phone Father Name 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 Status 07/27/19 21 1 CLOSED Fetus Data First Name Last Name Admitted to NICU Weight (g) Sex Living Outcome Pediatric Complications Fetus ID Race Codes Race Delivery Type 3259.96 5704 F Full Term [id number] Vaginal Delivery Sam Calculation Initial Sam Date Initial Exam Date Initial Exam Provider Initial Ultrasound Date Last Menstrual Period Date Ultra Sound Weeks Gestation 0 Eighteen To Twenty Week Sam Update Ultra Sound Date Fundal Height At Umbil Quickening Date Ultra Sound Latest Weeks Gestation Final Sam Confirmed By Final Sam Confirmed Date Final Sam Date Ultra Sound Latest Days Gestation 0 0 Menstrual History Last Menstrual Date Menses Monthly On Bcp Conception Prior Menses Frequency Hcg Plus Date Menarche Onset Age Delivery Information Delivery Date Delivery Type Labor Anesthesia Weeks Gestation Incision Type Labor Labor Length Hrs Delivered By Post Complications Tubal Sterilization Discharge Date Comments 9 37 ghtn Discharge Information Feeding Method Contraceptive Method Maternal HG B and HCT Levels
--- OUTSIDE RECORDS SUMMARY | 2024-09-11 09:11 | XMS_ITS | Clinical Summary ---
Author Organization [facility] Address [address] [place] [address] Phone Care Team Providers Care Ancillary Services Manager Therapy Name Role Phone ANNE LLOYD MD Primary [...] 08/02/2016 1:15PM By ANNE LLOYD MD ; [facility] Zofran 4 MG Tablet 10/31/2014 - 11/15/2014 Provider: ANNE LLOYD MD Diagnosis: 1 every 6 hours as needed Last Documented On 10/31/2014 3:49PM By ANNE LLOYD MD ; [facility] Amoxicillin 500 MG Capsule, conventional 09/24/2014 - 10/01/2014 Provider: JOSÉ MIGUEL GRIFFIN Diagnosis: ASY BACTERIURIA-ANTEPART One tablet three times a day Last Documented On 5 10:49AM By JOSÉ MIGUEL GRIFFIN ; [facility] Medications Administered Includes: Administered [...] Active Last Documented On 08/08/2017 2:53PM ; [facility] Note: edema of feet/hands; throat felt c onstricted Encounters Encounter Provider Location Date Check-In Time Check-Out Time Diagnosis * PHONE CALL ANNE LLOYD MD 09/02/2016 11:59AM 11:59PM Insurance Includes: Active Insurance Policies Plan Name Member ID Group # Subscriber Relationship Effect bi Dates - [facility] PLAN [id number] CONNOR burgos Clinical Notes Includes: Clinical Notes from this encounter No Clinical Notes Recorded
== END 2024-09-11 08:41 | disposition home or self-care (01) ==
PROVIDERS: PCP Nurse Practitioner Adult Health; Visit Provider Nurse Practitioner Adult Health
DX: L50.8 Other urticaria (principal)
CPT/HCPCS: 36415; 82785; 86003

== ENCOUNTER 2025-02-25 06:59 | Outpatient (CLI) | payer BC, SELFPAY ==
--- OUTSIDE RECORDS SUMMARY | 2024-10-15 12:30 | XMS_ITS ---
Author Organization [facility] [place] ([address]) Address [address] [place] [address] Care Team Providers Care Cordwood Cutter Helper Name Role Phone Navid Gilberto Shankar [phone] REASON FOR VISIT [employer] Hives Social History Sex Assigned At : Social History Observation Description Sex Assigned At Female Encounters Encounter Location Date Provider Diagnosis [facility] [address] [place] [address] 10/15/2024 Gilberto Shoemaker Plan Of Treatment No Information Progress Notes * DAYChari TOUSSAINTOB:1995 (29 yo F)Acc No.[id number]:10/15/2024 Progress Notes Patient: Liz GOLD Provider: Giorgio Shoemaker :1995 A ge:29 Y S ex:Female Date:10/15/2024 Address:[address] [place] [address] Subjective: * Chief Complaints: * 1 . [employer] Hives. * Medical History: Objective: * Vitals: Assessment: Plan: * Treatment: * Billing Information: * Visit Code: * Procedure Codes: * Electronic signature of MD Bronson ph D on 02/25/2025 at 07:03 AM CDT Sign off status: Pending * Provider: Giorgio Shoemaker Date: 0 10/15/2024 Generated for Iqra whittington/Abner/eTransmitting on: 0 02/25/2025 07:03 AM CDT
--- OUTSIDE RECORDS SUMMARY | 2025-02-25 07:03 | XMS_ITS | Clinical Summary ---
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 Gender Identity Not on file Sexual Orientation Not on file Obstetrics History Last Filed Vital Signs Vital Sign Reading Time Taken Comments Blood Pressure 136/74 04/26/2021 7:03 PM STORAGE ENGINEER Pulse 101 04/26/2021 7:03 PM STORAGE ENGINEER Temperature 36.6 C (97.8 F) 04/26/2021 7:03 PM STORAGE ENGINEER Respiratory Rate 20 04/26/2021 7:03 PM STORAGE ENGINEER Oxygen Saturation 100% 04/26/2021 7:03 PM STORAGE ENGINEER Inhaled Oxygen Concentration - - Weight 108.9 kg (240 lb) 04/26/2021 7:03 PM STORAGE ENGINEER Height 167.6 cm (5' 6) 04/26/2021 7:03 PM STORAGE ENGINEER Body Mass Index 38.74 04/26/2021 7:03 PM STORAGE ENGINEER Plan of Treatment Not on file Insurance [place] [employer] [place] [employer] [place] Care Teams Engraver Hand Soft Metals Relationship Specialty Start Date End Date No, Physician PCP - General 03/01/21
--- OUTSIDE RECORDS SUMMARY | 2025-02-25 07:03 | XMS_ITS | Patient Health Record ---
Author Organization [facility] [place] ([address]) Address [address] [place] [address] Care Team Providers Care Lighting Engineer Name Role Phone Gilberto Shoemaker Unavailable [phone] Reason For Referral No Information Social History Sex Assigned At : Social History Observation Description Sex Assigned At Female Plan Of Treatment No Information Insurance Providers Payer Name Payer Address Payer Phone Subscriber Number Group Number Insured Name Patient Relationship to Insured Coverage Start Date Coverage End Date [facility] [address] [place] [address] [id number] Liz Lebron Self - patient is the insured 5
[2025-02-25 19:33] LABS: Alanine Aminotransferase 15 U/L (6-35); Albumin Level 4.2 g/dL (3.5-5.1); Alkaline Phosphatase 55 U/L (38-126); Anion Gap 6 mmol/L (4-12); Aspartate Amino Transferase 62 U/L (14-36); Bilirubin,Total 0.4 mg/dL (0.2-1.3); Blood Urea Nitrogen 13 mg/dL (7-17); Calcium 9.6 mg/dL (8.4-10.2); Carbon Dioxide 28 mmol/L (22-30); Chloride 101 mmol/L (98-107); Cholesterol 241 mg/dL (0-200); Estimated Glomerular Filt Rate > 60; Glucose 64 mg/dL (65-110); HDL Direct 57 mg/dL; Potassium 4.7 mmol/L (3.4-5.0); Sodium 135 mmol/L (137-145); Total Protein 7.2 g/dL (6.3-8.2); Triglycerides 115 mg/dL (<150)
[2025-02-25 19:43] LABS: Hemoglobin A1C 5.0 % (<5.7)
[2025-02-25 19:55] LABS: Free T4 Free Thyroxine 1.08 ng/dL (0.78-2.19)
[2025-02-25 20:08] LABS: Thyroid Stimulating Hormone 4.440 uIU/mL (0.465-4.680)
== END 2025-02-25 07:00 | disposition home or self-care (01) ==
LOC: ANHBWCLAB 07:01
PROVIDERS: PCP Nurse Practitioner Adult Health; Visit Provider Nurse Practitioner Adult Health
DX: Z13.9 Encounter for screening, unspecified (principal); E78.00 Pure hypercholesterolemia, unspecified; E55.9 Vitamin D deficiency, unspecified; E88.810 Metabolic syndrome
CPT/HCPCS: 36415; 80053; 80061; 82306; 83036; 84439; 84443